=== PATIENT | female | born 1990 | race Caucasian/White ===

== ENCOUNTER 2022-09-08 13:51 | Emergency (ER) | payer OTHER, SELFPAY ==
[2022-09-08 14:12] VITALS: BP 153/102; PULSE 100; RESP 18; TEMP 36.7; O2SAT 100
--- NOTE | 2022-09-08 14:17 | ED.URI ---
HPI - URI/Sore Throat General Chief Complaint: Upper Respiratory Infection Stated Complaint: congestion Time Seen by Provider: 09/08/22 14:18 Source: patient Mode of arrival: ambulatory Limitations: no limitations History of Present Illness HPI Narrative: 32-year-old female presents with complaint of of sore throat, body aches, fatigue, headache for 4 days. Patient states she missed 2 days of work. Needs a work note. States that her work wants her tested for COVID. Denies cough, chest pain, shortness of breath, nasal congestion. Afebrile. All systems reviewed and negative except as noted above. Related Data Home Medications Medication Instructions Recorded Confirmed loratadine 10 mg tablet (Claritin) 10 mg PO DAILY 09/08/22 09/08/22 Allergies Allergy/AdvReac Type Severity Reaction Status Date / Time No Known Allergies Allergy Unknown Verified 09/08/22 14:08 Review of Systems Review of Systems: CONSTITUTIONAL: Denies fever, chills, or sweats. EYES: Denies visual changes, redness, or discharge. ENT: Denies rhinorrhea, congestion . Reports sore throat. Denies otalgia. CARDIOVASCULAR: Denies chest pain, palpitations, or edema. RESPIRATORY: Denies cough or dyspnea. GASTROINTESTINAL: Denies abdominal pain, nausea, vomiting, or diarrhea. GENITOURINARY: Denies dysuria or hematuria. SKIN: Denies rash or itching. MUSCULOSKELETAL: Denies back pain, joint pain, or myalgia. NEUROLOGIC: Denies headache, numbness, or weakness. PSYCHIATRIC: Denies anxiety or depression. All other systems reviewed are negative, except as documented in HPI. PMFSH Comments At time of signature, agree with nursing past medical, surgical, social and family history. There is no relevant family history pertinent to the presenting complaint. Exam Narrative: GENERAL: This is a well-nourished, well-developed patient, in no apparent distress. HEAD: normocephalic, atraumatic. EYES: PERRL. Sclera clear/white. Vision is grossly intact. EARS: External ears normal, auditory canals clear and without drainage, TMs normal without perforation. Hearing grossly intact. NOSE: External nose normal with no obvious nasal discharge, nares without redness, no rhinorrhea. THROAT: Mucous membranes moist, erythematous with mild swelling. No exudates. NECK: Neck supple, non-tender without lymphadenopathy, masses or thyromegaly. CARDIOVASCULAR: Regular rate and rhythm without murmurs, gallops, or rubs. RESPIRATORY: Clear to auscultation. Breath sounds equal bilaterally. No wheezes, rales, or rhonchi. SKIN: warm, Dry, intact with no suspicious lesions or rash, good texture and turgor. NEURO: awake, alert, and oriented to person, place and time. There were no obvious focal neurologic abnormalities. EXTREMITIES: No joint tenderness, effusion, or edema noted. Course Course Level of Care: Express Care Visit Vital Signs Vital signs: Vital Signs Temperature 36.7 C 09/08/22 14:12 Pulse Rate 100 09/08/22 14:12 Respiratory Rate 18 09/08/22 14:12 Blood Pressure 153/102 H 09/08/22 14:12 Pulse Oximetry 100 09/08/22 14:12 Oxygen Delivery Room Air 09/08/22 14:12 Temperature 36.7 C 09/08/22 14:12 Pulse Rate 100 09/08/22 14:12 Respiratory Rate 18 09/08/22 14:12 Blood Pressure 153/102 H 09/08/22 14:12 Pulse Oximetry 100 09/08/22 14:12 Oxygen Delivery Room Air 09/08/22 14:12 Reviewed MDM - URI/Sore Throat MDM Narrative Medical decision making narrative: Patient is aware of diagnosis, understands and agrees to treatment plan. Anticipatory guidance given. Patient agrees to follow-up as directed and is aware of reasons to seek care at the emergency department. Portions of this record may have been created with voice recognition software Differential Diagnosis Differential diagnosis: Likely upper respiratory infection and viral infection Lab Data Labs: Lab Results 09/08/22 Range/Units 14:20 POC LIVAN
== END 2022-09-08 14:45 | disposition home or self-care (01) ==
PROVIDERS: Emergency Provider Nurse Practitioner Family; PCP Obstetrics & Gynecology
DX: U07.1 COVID-19 (principal)
CPT/HCPCS: 87081; 87426; 87880; 99213; C9803; G0463

== ENCOUNTER 2022-10-04 01:21 | Emergency (ER) | payer OTHER, SELFPAY ==
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
[2022-10-04 01:23] VITALS: BP 182/118; PULSE 101; RESP 15; TEMP 36.3; O2SAT 100
[2022-10-04] MEDS: ceFAZolin SODIUM 1 GM VIAL 2 GM IV PUSH (02:28)
[2022-10-04] MEDS: TETANUS,DIPHTHERIA,AC PERTUSSIS ADULT (0.5 ML) BOOSTRIX IM (02:28)
[2022-10-04] MEDS: KETOROLAC 30 MG/ML VIAL (*BKC) 15 MG IV PUSH (02:29)
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
[2022-10-04 04:41] VITALS: BP 161/90; PULSE 97; RESP 15; O2SAT 99
== END 2022-10-04 04:43 | disposition home or self-care (01) ==
PROVIDERS: Emergency Provider Emergency Medicine; PCP Obstetrics & Gynecology
DX: S60.511A Abrasion of right hand, initial encounter (principal); S80.211A Abrasion, right knee, initial encounter; V20.59XA Other motorcycle passenger injured in collision with pedestrian or animal in traffic accident, initial encounter; Z23 Encounter for immunization
CPT/HCPCS: 73130; 90471; 90715; 96374; 96375; 99284; J0690; J1885

== ENCOUNTER 2024-02-02 11:48 | Emergency (ER) | payer BC, SELFPAY ==
--- NOTE | 2024-02-02 11:56 | ED.URI ---
HPI - URI/Sore Throat General Chief Complaint: Upper Respiratory Infection Stated Complaint: body ache / nausea Time Seen by Provider: 02/02/24 12:05 Source: patient Mode of arrival: ambulatory Limitations: no limitations History of Present Illness HPI Narrative: Gauri is a 33-year-old female patient presenting to the clinic today with complaints body aches, nausea, and vomiting for the past 3 days. She denies any known fever, chills, URI symptoms, urinary symptoms, diarrhea, or abdominal pain. States she is not able to keep anything down for the past 3 days. Last menstrual period was last month. Patient is sexually active. Related Data Allergies Allergy/AdvReac Type Severity Reaction Status Date / Time No Known Allergies Allergy Unknown Verified 02/02/24 12:20 Review of Systems Review of Systems: Pertinent positives per HPI. Patient denies any fever, chills, rash, headache, visual changes, dizziness, cough, shortness of breath, chest pain, palpitations, diarrhea, constipation, abdominal pain, or any urinary issues. PMFSH Comments At the time of my signature, I reviewed and agree with the nursing past medical, surgical, social, and family history. There is no relevant family history pertinent to the patient complaint. Exam Narrative: General: Well-developed, well nourished, in no apparent distress Head: Normocephalic, atraumatic Eyes: Pupils equally round and reactive to light bilaterally, EOM intact, sclera and conjunctive clear, no discharge, lids normal Ears: TMs intact and clear, ear canals clear, no drainage, grossly hearing normal. Nose: Nares patent, no discharge, no inflammation, no sinus tenderness. Mouth: Oropharynx without lesions or masses, good dentition, MM dry. Neck: Supple, trachea midline, no enlargement of anterior or posterior cervical nodes, no thyroid masses or goiter palpable. Cardio: Regular rate and rhythm, s1 and s2 normal, no murmur appreciated. Resp: Clear to auscultation bilaterally anteriorly and posteriorly, no rhonchi, rales, wheezing or rubs Abdomen: Soft, pliable, bowel sounds present in all quadrants, non-tender to palpation, no organomegly, no CVAT tenderness. Course Course Emergency Course: Portions of this record may have been created with voice recognition software. Level of Care: Express Care Visit Vital Signs Vital signs: Vital Signs Temperature 36.7 C 02/02/24 12:02 Pulse Rate 90 02/02/24 12:02 Respiratory Rate 16 02/02/24 12:02 Blood Pressure 169/103 H 02/02/24 12:02 Pulse Oximetry 100 02/02/24 12:02 Oxygen Delivery Room Air 02/02/24 12:02 Temperature 36.7 C 02/02/24 12:02 Pulse Rate 90 02/02/24 12:02 Respiratory Rate 16 02/02/24 12:02 Blood Pressure 169/103 H 02/02/24 12:02 Pulse Oximetry 100 02/02/24 12:02 Oxygen Delivery Room Air 02/02/24 12:02 Vital signs reviewed MDM - URI/Sore Throat MDM Narrative Medical decision making narrative: At the time of visit patient is resting comfortably on the exam table. Patient appears to be nontoxic. Labs: COVID, influenza, urinalysis, and bedside urine test was performed. Bedside urine to test is positive and urinalysis is positive for leukocytes, trace of ketone, and nitrates. COVID and influenza testing was negative. We will send urine for culture. Medications: Zofran 4 mg ODT given in the clinic today. P.o. challenge was performed patient was able to keep down ice chips. Plan: I suspect patient has acute dehydration, , and urinary tract infection. Prescription for Keflex and promethazine was sent to the pharmacy. Supportive measures were discussed with the patient and they voiced understanding discharge instructions and agrees to treatment plan. Return precautions reviewed Differential Diagnosis Differential diagnosis: Likely viral infection, influenza and other (COVID, , dehydration, UTI) Lab Data Labs: Lab R
[2024-02-02 12:02] VITALS: BP 169/103; PULSE 90; RESP 16; TEMP 36.7; O2SAT 100
[2024-02-02] MEDS: ONDANSETRON HCL ODT 4 MG TABLET SUBLINGUAL (12:22)
[2024-02-02 12:25] LABS: EDUAAPPEAR Clear; EDUABILI Negative (Negative); EDUABLOOD Negative (Negative); EDUACOLOR1 Dark; EDUAGLUCOSE Negative (Negative); EDUAKETONE Trace (Negative); EDUALEUKO Trace (Negative); EDUANITRATE Positive (Negative); EDUAPH 6.5; EDUAPROTEIN Negative (Negative); EDUASPGRAVITY 1.025
[2024-02-02 12:25] LABS: BEDSIDEPREGUCG Positive (Negative)
[2024-02-02 12:30] VITALS: BP 148/94
== END 2024-02-02 12:32 | disposition home or self-care (01) ==
PROVIDERS: Emergency Provider Nurse Practitioner Family
DX: O23.40 Unspecified infection of urinary tract in pregnancy, unspecified trimester (principal); B96.20 Unspecified Escherichia coli [E. coli] as the cause of diseases classified elsewhere; N39.0 Urinary tract infection, site not specified; O99.280 Endocrine, nutritional and metabolic diseases complicating pregnancy, unspecified trimester; E86.0 Dehydration; Z3A.00 Weeks of gestation of pregnancy not specified
CPT/HCPCS: 81003; 81025; 87077; 87086; 87186; 99213; A9270; G0463

== ENCOUNTER 2024-07-11 21:29 | Emergency (ER) | payer MEDICAID, SELFPAY ==
[2024-07-11 21:47] VITALS: BP 186/134; PULSE 116; RESP 18; TEMP 36.6; O2SAT 99
--- NOTE | 2024-07-11 21:54 | ECG_ITS ---
Test Date: 2024-07-11 21:58:10 Measurements Intervals [place] Rate: 118 P: 57 [place]: 141 QRS: 26 QRSD: 85 T: 196 QT: 340 QTc: 477 Interpretive Statements SINUS TACHYCARDIA LEFT ATRIAL ENLARGEMENT [-0.15mV P WAVE IN V1/V2] ST DEVIATION AND MODERATE T-WAVE ABNORMALITY, CONSIDER LATERAL ISCHEMIA [-0.1+ mV T WAVE IN I/aVL/V5/V6] ST DEVIATION AND MODERATE T-WAVE ABNORMALITY, CONSIDER INFERIOR ISCHEMIA [-0.1+ mV T WAVE IN II/aVF] No previous ECG available for comparison Electronically Signed On 07-12-2024 16:46:24 CDT by Gold Potts M.D.
--- NOTE | 2024-07-12 01:31 | PC.NURSE ---
No answer when called to be taken back to main ED room.
== END 2024-07-12 01:31 | disposition left against medical advice (07) ==
LOC: ANHED 07-12 01:40
PROVIDERS: Emergency Provider Emergency Medicine
DX: R06.02 Shortness of breath (principal)
CPT/HCPCS: 93005; 99199

== ENCOUNTER 2024-07-12 07:09 | Observation (INO) | payer MEDICAID, SELFPAY ==
[2024-07-12] VITALS (11 sets, daily range): BP systolic 140–190; BP diastolic 74–142; PULSE 97–121; RESP 16–25; TEMP 36.5–37.2; O2SAT 96–100; BMI 26.2
--- NOTE | ~2024-07-12 | XR_ITS ---
CHEST RADIOGRAPH CLINICAL HISTORY: Post thoracentesis . COMPARISON: CTA of the chest performed 6 hours earlier TECHNIQUE: Single portable view of the chest. FINDINGS The cardiomediastinal silhouette is unremarkable. Interval resolution of the right-sided pleural effusion, seen on CT examination performed 6 hours ear lier. Small left-sided pleural effusion persists. The right lung is inflated. IMPRESSION: No pneumothorax following right-sided thoracentesis with resolution of the right-sided pleural effusi on, as detailed above. Reviewed, dictated and finalized at location A. IMPRESSION: No pneumothorax following right-sided thoracentesis with resolution of the righ t-sided pleural effusion, as detailed above.
--- NOTE | ~2024-07-12 | XR_ITS ---
XR chest 2V Ordering provider: Veronica Stephens MD History: 33 years Female with . SOB 4days, difficult. breathing with activity, hx of high BP . Comparison: None. FINDINGS: MEDIASTINUM: The cardiac silhouette is slightly enlarged. Congestive pedro. LUNGS: No effusions or pneumothorax. Opacification the lung bases is seen suggestive of atelectasis versus pneumonia. OTHER: No free air under the diaphragm. IMPRESSION: Bibasilar atelectasis versus pneumonia. Reviewed, dictated and finalized at location A.
--- NOTE | ~2024-07-12 | US_ITS ---
EXAMINATION: US abdomen limited DATE: 07/12/2024 12:30 INDICATION: Fluid overload the gallbladder wall thickening on CT. TECHNIQUE: Multiple grayscale and Doppler ultrasound images of the abdomen were obtained. COMPARISON: CT dated 07/12/2024 FINDINGS: The pancreatic head and body are normal in appearance. The pancreatic tail is not visualized. The vi sualized proximal to mid inferior vena cava and aorta are normal. Liver has normal echogenicity and c ontour, with a smooth surface. No liver lesion identified. No intrahepatic biliary duct dilation susp ected. Portal venous flow was seen in the hepatopetal, normal direction and has normal Doppler wavefo rm. Borderline gallbladder wall thickening measuring up to 3-4 mm which may be due to partially decom pressed state.. No evident gallbladder sludge or cholelithiasis. The common bile duct measures 4 mm, which is normal. Sonographic Elise sign was reported as negative by the cvor nurse.Visualized porti on of the right kidney demonstrates normal contour and axis tube with no hydronephrosis. There is a r ight pleural effusion. IMPRESSION: 1. Nonspecific borderline gallbladder wall thickening but with negative sonographic Elise's on and w ithout gallbladder dilation or cholelithiasis to suggest acute cholecystitis. Given the persistent ri ght pleural effusion as well as the Cardia megaly with pulmonary edema seen on prior CT the prior mor e prominent wall thickening is likely related to congestive heart failure. If there is continued high clinical concern for acute cholecystitis could consider HIDA scan for further evaluation. Reviewed, dictated and finalized at location A. IMPRESSION: 1. Nonspecific borderline gallbladder wall thickening but with negative sonogra phic Elise's on and without gallbladder dilation or cholelithiasis to suggest acute cholecystitis. Given the persistent right pleural effusion as well as the Cardia megaly with pulmonary edema seen on prior CT the prior more prominent w all thickening is likely related to congestive heart failure. If there is slick nued high clinical concern for acute cholecystitis could consider HIDA scan for further evaluation.
--- NOTE | ~2024-07-12 | CT_ITS ---
Clinical Indication: Tachycardia, chest pain, transaminitis CT Scan of the Chest, Abdomen, and Pelvis with Contrast: Technique: Contiguous sections were acquired throughout the chest, abdomen, and pelvis after intraven ous administration of 100 cc of Omnipaque 350. Dose reduction technique was used on this scan by uti lizing automated exposure control and iterative reconstruction technique. The dose-length product (DL P) was 396.63 mGy-cm. Findings: There is no evidence of any significant mediastinal, hilar or axillary lymphadenopathy. The mediastin al soft tissues appear normal. No pulmonary embolus. No aortic aneurysm. No pericardial effusion. Moderate right pleural effusion and [id number] left pleural effusion are present. There is int erstitial pulmonary edema. There is mild bibasilar atelectatic change.. There is minimal heterogeneity of the liver. The spleen, pancreas, adrenals and kidneys are within no rmal limits. Diffuse gallbladder wall thickening present. No evidence of aortic aneurysm. No lymphad enopathy. No bowel obstruction or bowel wall thickening. There is no evidence to suggest acute appendicitis. Urinary bladder is unremarkable. No pelvic mass seen aside from small right ovarian cyst. No ascites. Impression: Moderate right pleural effusion and small to moderate left pleural effusion. Mild pulmonary edema, predominantly interstitial edema. Minimal heterogeneity of liver. Correlate for congestive hepatopathy. Gallbladder wall thickening likely related to fluid overload state. Reviewed, dictated and finalized at [facility]. Impression: Moderate right pleural effusion and small to moderate left pleural effusion. Mild pulmonary edema, predominantly interstitial edema. Minimal heterogeneity of liver. Correlate for congestive hepatopathy. Gallbladder wall thickening likely related to fluid overload state.
--- NOTE | ~2024-07-12 | US_ITS ---
EXAMINATION: US thoracentesis DATE: 07/12/2024 15:53 INDICATION: New onset heart failure with bilateral pleural effusions, right greater than left TECHNIQUE: The procedure and its risks and benefits were discussed with the patient. Potential risks discussed included bleeding, infection, and pneumothorax. The patient understood the risks and agreed to proceed. The skin was prepped and draped in sterile fashion. 1% lidocaine was used for local anes thesia. Under ultrasound guidance, a 5 Fr catheter with trochar was advanced into the right pleural e ffusion. Fluid was aspirated. The catheter was removed, and a dressing was applied. There were no imm ediate complications. FINDINGS: Ultrasound images demonstrate a small right pleural effusion and the catheter within the fluid. IMPRESSION: 1. Successful ultrasound-guided thoracentesis yielding 700 mL of clear yellow fluid. Reviewed, dictated and finalized at location A.
--- NOTE | ~2024-07-12 | XR_ITS ---
XR ankle RT 2V 07/12/2024 08:38 Indication: Right ankle pain. Trauma. Procedure: 2 views right ankle Comparison: No prior studies for comparison. Findings: Ankle mortise intact. No fracture, subluxation or dislocation. Talar dome is normal. No sof t tissue abnormality. No foreign bodies. Impression: 1: No acute bone or joint abnormality. Reviewed, dictated and finalized at location B. Impression: 1: No acute bone or joint abnormality.
--- NOTE | 2024-07-12 07:14 | ECG_ITS ---
Test Date: 2024-07-12 07:28:02 Measurements Intervals [place] Rate: 113 P: 62 [place]: 112 QRS: 17 QRSD: 84 T: 188 QT: 326 QTc: 448 Interpretive Statements SINUS TACHYCARDIA WITH SHORT [place] INTERVAL LEFT ATRIAL ENLARGEMENT [-0.15mV P-WAVE IN V1/V2] ST DEVIATION AND MODERATE T-WAVE ABNORMALITY, CONSIDER LATERAL ISCHEMIA [-0.1+ mV T-WAVE IN I/aVL/V5/V6] ST DEVIATION AND T-WAVE ABNORMALITY, CONSIDER INFERIOR ISCHEMIA Compared to ECG 07/11/2024 21:58:10 NO SIGNIFICANT CHANGES Electronically Signed On 07-12-2024 16:54:41 CDT by Gold Potts M.D.
[2024-07-12 07:42] LABS: Basophils Absolute Auto 0.1 K/mm3 (0.0-0.1); Basophils Percent Auto 0.7 % (0.2-1.2); Eosinophils Absolute Auto 0.1 K/mm3 (0-0.3); Eosinophils Percent Auto 1.2 % (0-4.4); Hematocrit 48.4 % (37.0-47.0); Hemoglobin 15.3 g/dL (12.0-15.0); Immature Granulocyte Absolute 0.02 K/mm3 (0.00-0.031); Immature Granulocyte Percent A 0.2 % (0-0.5); Lymphocytes Absolute Auto 2.72 K/mm3 (0.9-3.2); Lymphocytes Percent Auto 26.7 % (18.3-44.2); Mean Corpuscular HGB Conc 31.6 g/dl (32-36); Mean Corpuscular Hemoglobin 27.8 pg (26-34); Mean Corpuscular Volume 87.8 fl (80-100); Mean Platelet Volume 10.7 fl (7.4-10.4); Monocytes Absolute Auto 0.6 K/mm3 (0.1-0.6); Monocytes Percent Auto 5.6 % (2.6-8.5); Neutrophils Absolute Auto 6.7 K/mm3 (1.3-6.7); Neutrophils Percent Auto 65.6 % (45.5-73.1); Platelet Count Result 260 k/mm3 (150-375); Red Blood Count 5.51 M/mm3 (4.2-5.4); White Blood Count 10.2 K/mm3 (4.5-10.0)
[2024-07-12 08:04] LABS: Alanine Aminotransferase 95 U/L (6-35); Albumin Level 3.5 g/dL (3.5-5.1); Alkaline Phosphatase 65 U/L (38-126); Anion Gap 8 mmol/L (4-12); Aspartate Amino Transferase 61 U/L (14-36); Bilirubin,Total 0.8 mg/dL (0.2-1.3); Blood Urea Nitrogen 13 mg/dL (7-17); Calcium 8.2 mg/dL (8.4-10.2); Carbon Dioxide 22 mmol/L (22-30); Chloride 106 mmol/L (98-107); Estimated CRCL calculation 77 ml/min; Estimated Glomerular Filt Rate > 60; Glucose 104 mg/dL (65-110); Potassium 4.3 mmol/L (3.4-5.0); Sodium 136 mmol/L (137-145)
--- NOTE | 2024-07-12 08:04 | ED_ITS ---
HPI - SOB/Dyspnea General Chief Complaint: Shortness of Breath/Dyspnea Stated Complaint: shortness of breath, swelling to R ankle/abd Time Seen by Provider: 07/12/24 07:24 Source: patient and family (mother) Mode of arrival: ambulatory Limitations: no limitations History of Present Illness HPI Narrative: Patient presents with report of shortness of breath. She feels like she has gained water weight. Particularly in her right leg/ankle. No chest pain. She has become dyspneic on exertion and sometimes at rest, making it difficult to sleep. Symptoms started 4 days ago but at baseline she is very active so this is unusual. She starts coughing when lying flat. No fevers or chills. Had been told previously that she had hypertension but not on meds. Symptoms worse when walking. Ankle has been swollen but without pain. She feels fatigued. LMP 9 days ago. Cardiac issues on father's side of family. No trauma/injury to ankle. Not on anticoagulation. No recent travel. No history DVT/PE. Not on anticoagulation. Related Data Allergies Allergy/AdvReac Type Severity Reaction Status Date / Time No Known Allergies Allergy Unknown Verified 07/12/24 07:26 [facility] Past Medical History Medical History HTN (hypertension) Surgical History Surgical History (Updated 07/12/24 @ 18:01 by Yanet Shaffer APRN) H/O elbow surgery Family History Family History Father Acute myocardial infarction, Onset Age: 65 Other Acute myocardial infarction 60s Social History Social History Smoking status: Never smoker Alcohol intake: former Substance use: never Last use: 2020 Do You Feel Safe in your Home?: Yes Lack of Transportation: No Lack of Food: Never True Current Housing: I Have Housing Concerned About Future Housing: No Difficulty Paying Gas/Electric Bills: No Difficulty Paying for Meds: No Currently Unemployed: No Education: Associate Degree Difficulty w/ Childcare or Family Care: No Spiritual care concerns: No Exam 2 Narrative: GENERAL: Well-appearing, well-nourished, and in no acute distress. HEAD: Normocephalic, atraumatic. EYES: Non injected, non icteric ENT: Nares clear, no rhinorrhea or epistaxis. NECK: Supple. CHEST: Speaking in full sentences. No respiratory distress. Non labored. Not hypoxic. HEART: Regular rate and rhythm. . ABDOMEN: Soft, nondistended. EXTREMITIES: Normal range of motion. 1+ L lower extremity edema and 3+ R LE edema. SKIN: Warm, dry, no rash. NEURO: No focal deficits. Alert and oriented x3. PSYCH: Normal mood and affect. Course Vital Signs Vital signs: Vital Signs Temperature 98.1 F 07/12/24 07:19 Pulse Rate 121 H 07/12/24 07:19 Respiratory Rate 16 07/12/24 07:19 Blood Pressure 190/142 H 07/12/24 07:19 Pulse Oximetry 100 07/12/24 07:19 Oxygen Delivery Room Air 07/12/24 07:19 Temperature 98.6 F 07/14/24 04:33 Pulse Rate 80 07/14/24 09:29 Respiratory Rate 16 07/14/24 04:33 Blood Pressure 142/89 H 07/14/24 04:33 Pulse Oximetry 97 07/14/24 04:33 Oxygen Delivery Room Air 07/13/24 20:14 Fraction of Inspired Oxygen 21 07/13/24 20:14 MDM - SOB/Dyspnea MDM Narrative Medical decision making narrative: Patient presents with shortness of breath starting 4 days ago. Also has been feeling fatigued and gaining water weight particularly appreciated in R lower extremity. Previously told she had hypertension but not on meds. In the emergency department she is afebrile with vital signs notable for tachycardia and hypertension. Mild leukocytosis. Hemoglobin slightly elevated with no prior for comparison, possible degree of hemoconcentration. Pseudo hypocalcemia as it corrects to normal in setting of her albumin level. Mild transaminitis. Viral swab negative. D-dimer greater than 1 so will proceed with CTA imaging assessing for pulmonary embolism. Given the transaminitis will also include abdomen and pelvis. test negative. BNP greater than 9000 concerning for acute heart failure. Amphetamine positive on urine drug screen. Given degree of pleural effusion and acuity of heart failure in patient of her age, recommend admission for further work up and management to assess for reversible/manageable conditions. She verifies understanding, amenable. Empirically ordered pleural fluid labs for analysis (including using Light's Criteria though presume transudative given suspicion of heart failure, possibly secondary to unmanaged HTN but other etiologies considered) as well as ordered radiological diagnostic and therapeutic thoracentesis. Disussed with certified health education specialist hospitalist SACHI Holt. Differential Diagnosis Differential diagnosis: Likely congestive heart failure (including considered flash pulmonary edema/SCAPE), community acquired pneumonia, pulmonary embolism and other (Cardiomyopathy; symptomatic anemia, electrolyte abnormalities, renal dysfunction; acute viral syndrome) Lab Data Attestation: I reviewed the patient's lab results. 07/14/24 04:40 07/14/24 04:40 Labs: Lab Results 07/12/24 07/12/24 07/12/24 Range/Units 07:35 08:56 09:10 WBC 10.2 H (4.5-10.0) K/mm3 RBC 5.51 H (4.2-5.4) M/mm3 Hgb 15.3 H (12.0-15.0) g/dL Hct 48.4 H (37.0-47.0) % MCV 87.8 (80-100) fl MCH 27.8 (26-34) pg MCHC 31.6 L (32-36) g/dl RDW 15.0 H (11.5-14.5) % Plt Count 260 (150-375) k/mm3 MPV 10.7 H (7.4-10.4) fl Immature Gran % (Auto) 0.2 (0-0.5) % Neut % (Auto) 65.6 (45.5-73.1) % Lymph % (Auto) 26.7 (18.3-44.2) % [place] % (Auto) 5.6 (2.6-8.5) % Eos % (Auto) 1.2 (0-4.4) % Baso % (Auto) 0.7 (0.2-1.2) % Lymph # (Auto) 2.72 (0.9-3.2) K/mm3 [place] # (Auto) 0.6 (0.1-0.6) K/mm3 Eos # (Auto) 0.1 (0-0.3) K/mm3 Baso # (Auto) 0.1 (0.0-0.1) K/mm3 Abs Immat Gran (auto) 0.02 (0.00-0.031) K/mm3 Absolute Neuts (auto) 6.7 (1.3-6.7) K/mm3 Absolute Nucleated RBC 0.000 (0.0-0.012) K/mm3 Nucleated RBC % 0.0 (0.0-0.2) % D-Dimer 4.78 H (<0.48) ug/mL Sodium 136 L (137-145) mmol/L Potassium 4.3 (3.4-5.0) mmol/L Chloride 106 (98-107) mmol/L Carbon Dioxide 22 (22-30) mmol/L Anion Gap 8 (4-12) mmol/L BUN 13 (7-17) mg/dL Creatinine 0.77 (0.7-1.0) mg/dL Estim Creat Clear Calc 77 ml/min Estimated GFR > 60 (59 - ) Glucose 104 (65-110) mg/dL Calcium 8.2 L (8.4-10.2) mg/dL Magnesium 1.8 (1.6-2.3) mg/dL Total Bilirubin 0.8 (0.2-1.3) mg/dL AST 61 H (14-36) U/L ALT 95 H (6-35) U/L Alkaline Phosphatase 65 (38-126) U/L Total Creatine Kinase 135 (30-135) U/L Troponin I 0.018 (0.000-0.034) ng/mL NT-Pro-B Natriuret Pep 9890 H (19.9-100) pg/mL Total Protein 6.0 L (6.3-8.2) g/dL Albumin 3.5 (3.5-5.1) g/dL Urine Color Yellow (Yellow) Urine Appearance Cloudy H (Clear) Urine pH 6.0 (5.0-9.0) Ur Specific [place] 1.022 (1.001-1.035) Urine Protein 1+ H (Negative) mg/dL Urine Glucose (UA) Negative (Negative) mg/dL Urine Ketones Negative (Negative) mg/dL Ur Blood (Man) Negative (Negative) Urine Nitrate Positive H (Negative) Urine Bilirubin Negative (Negative) Urine Urobilinogen 1.0 (<2.0) mg/dL Leukocyte Esterase Rfl Negative (Negative) JAVIER/UL Urine RBC 3-5 H (0-2) /hpf Urine WBC 0-5 (0-3) /hpf Ur Squamous Epith Cells Many H (Few) /hpf Calcium Oxalate Crystal Present (None) /hpf Urine Bacteria 4+ H /hpf Urine Casts 0-2 POC Urine HCG, Qual Negative (Negative) Urine Opiates Screen Negative (Negative) Urine Methadone Screen Negative (Negative) Ur Barbiturates Screen Negative (Negative) Ur Phencyclidine Scrn Negative (Negative) Ur Amphetamine Screen Positive A (Negative) U Benzodiazepines Scrn Negative (Negative) Urine Cocaine Screen Negative (Negative) U Cannabinoids Screen Negative (Negative) Influenza A (RT-PCR) Negative (Negative) Influenza B (RT-PCR) Negative (Negative) RSV (RT-PCR) Negative (Negative) SARS-CoV-2 RNA (RT-PCR) Negative (Negative) Imaging Data Attestation: I personally reviewed and interpreted this imaging study as follows: My impression: Chest x-ray with basilar haziness on the left without complete opacification and loss of the left costophrenic angle Prominent right pleural effusion appreciated on my independent interpretation of CTA chest, does not appear to be loculated Radiologist's impression: IMPRESSION: Bibasilar atelectasis versus pneumonia. Impression: 1: No acute bone or joint abnormality. Impression: Moderate right pleural effusion and small to moderate left pleural effusion. Mild pulmonary edema, predominantly interstitial edema. Minimal heterogeneity of liver. Correlate for congestive hepatopathy. Gallbladder wall thickening likely related to fluid overload state. IMPRESSION: 1. Nonspecific borderline gallbladder wall thickening but with negative sonographic Elise's on and without gallbladder dilation or cholelithiasis to suggest acute cholecystitis. Given the persistent right pleural effusion as well as the Cardia megaly with pulmonary edema seen on prior CT the prior more prominent wall thickening is likely related to congestive heart failure. If there is continued high clinical concern for acute cholecystitis could consider HIDA scan for further evaluation. ECG Data EKG #1: Attestation: I personally reviewed and interpreted this ECG as follows: ECG completion date: 07/12/24 ECG completion time: 07:28 Prior ECG tracings: available for review (Patient had an EKG obtained last night/yesterday (?) 07/11/24 21:58 that also showed sinus tachycardia) Interpretation: Sinus tachycardia at a rate of 113 beats per minute. NE interval 112. QRS 84. QT/QTC 328/393. Good R-wave progression across the precordial leads. Possible T-wave inversion lead 2. Flat in lead 3. T-wave inversions in lateral precordial leads V5 and V6. Discharge Plan Discharge Clinical Impression: HTN (hypertension), Elevated hemoglobin, Abnormal transaminases, Acute heart failure, Bilateral pleural effusion, Interstitial edema, Abnormal drug screen Patient Disposition: Still a Patient Condition: Stable
[2024-07-12 08:20] LABS: Influenza A QL RT-PCR Negative (Negative); Influenza B QL RT-PCR Negative (Negative); RSV RNA, RT-PCR Negative (Negative); SARS-CoV-2 RNA PCR Negative (Negative)
[2024-07-12 09:12] LABS: Add Urine Microscopic? YES; Appearance Urine Cloudy (Clear); Bacteria Urine 4+ /hpf; Bilirubin Urine Negative (Negative); Blood Urine Negative (Negative); Calcium Oxalate Crystals Urine Present /hpf; Color Urine Yellow (Yellow); Glucose Urine UA Negative (Negative); Ketones Urine Negative (Negative); Leukocyte Esterase Ur Negative LEU/UL (Negative); Nitrate Urine Positive (Negative); Non Pathogenic Casts 0-2; Protein Urine 1+ mg/dL (Negative); Specific Grav Ur 1.022 (1.001-1.035); Squamous Epithelial Cell Urine Many /hpf (Few); WBC Urine 0-5 /hpf (0-3)
[2024-07-12 09:12] LABS: BEDSIDEPREGUCG Negative (Negative)
[2024-07-12 09:17] LABS: D Dimer 4.78 ug/mL (<0.48)
[2024-07-12 09:39] LABS: Creatine Kinase 135 U/L (30-135); Magnesium 1.8 mg/dL (1.6-2.3)
[2024-07-12 09:51] LABS: NT Pro B Type Natriuretic Pept 9890 pg/mL (19.9-100); Troponin I 0.018 ng/mL (0.000-0.034)
[2024-07-12 11:27] LABS: Barbiturate Screen Urine Negative (Negative); Benzodiazepines Screen Urine Negative (Negative)
[2024-07-12 11:29] LABS: Cannabinoid Screen Urine Negative (Negative); Cocaine Screen Urine Negative (Negative); Methadone Screen Urine Negative (Negative); Opiate Screen Urine Negative (Negative); Phencyclidine Screen Urine Negative (Negative)
[2024-07-12 12:04] LABS: Amphetamine Screen Urine Positive (Negative)
[2024-07-12] MEDS: FUROSEMIDE 40 MG TABLET PO (12:12)
--- NOTE | 2024-07-12 12:59 | P.HP_ITS ---
H&P: HPI History of Present Illness Date/Time: 07/12/24 12:59 Chief Complaint: SOB/dyspnea Narrative: This is a 33-year-old female with no significant past medical history who presented to the hospital with complaints of shortness of breath / dyspnea. patient states that she noticed swelling in her right lower extremity about 9 days ago and then started having shortness of breath about 4 days ago that progressively worsened. She denies any recent sick contacts. She denies any fever, chills, nausea, vomiting, diarrhea, abdominal pain, chest pain. Workup in the hospital included a chest x-ray which showed bibasilar atelectasis versus pneumonia. Right ankle x-ray which was negative for any acute abnormality. Chest/abdomen/ pelvis CTA showed moderate right pleural effusion is small to moderate left pleural effusion, mild pulmonary edema, gallbladder wall thickening likely related to fluid overload state. Abdomen ultrasound showed a nonspecific borderline gallbladder wall thickening but with negative Elise sign and without gallbladder dilation or cholelithiasis to suggest acute cholecystitis. Given the persistent right pleural effusion with pulmonary edema on CT is likely related to congestive heart failure. Initial labs showed a white blood cell count of 10.2, D-dimer 4.78, sodium 136, AST 61, ALT 95, proBNP 9890, troponin 0.018. UA was obtained which showed cloudy urine appearance, 1+ urine protein, positive nitrate, 3-5 urine RBC, many urine squamous epithelial cells, 4+ urine bacteria. Urine test was negative. Urine drug test was positive for amphetamine. Respiratory panel was negative for influenza A and B, RSV, COVID. EKG showed sinus tach with a rate of 113, QTC 448. Patient was given 40 mg IV push Lasix while in the ED. Review of Systems Review of Systems: All systems reviewed & are unremarkable except as noted in HPI and below [facility] Surgical History Surgical History (Updated 07/12/24 @ 18:01 by Yanet Shaffer APRN) H/O elbow surgery Social History Social History Smoking status: Never smoker Alcohol intake: former Substance use: never Last use: 2020 Do You Feel Safe in your Home?: Yes Lack of Transportation: No Lack of Food: Never True Current Housing: I Have Housing Concerned About Future Housing: No Difficulty Paying Gas/Electric Bills: No Difficulty Paying for Meds: No Currently Unemployed: No Education: Associate Degree Difficulty w/ Childcare or Family Care: No Spiritual care concerns: No Meds Home Medications and Allergies Allergies Allergy/AdvReac Type Severity Reaction Status Date / Time No Known Allergies Allergy Unknown Verified 07/12/24 07:26 Vital Signs Vital Signs - 24 hr 07/12/24 07:19 07/12/24 07:26 07/12/24 10:06 Temperature 98.1 F Pulse Rate 121 H 114 H 109 H Respiratory Rate 16 17 Blood Pressure 190/142 H 182/127 H Pulse Oximetry 100 96 Oxygen Delivery Room Air 07/12/24 11:05 Temperature Pulse Rate 104 H Respiratory Rate 19 Blood Pressure 164/110 H Pulse Oximetry 97 Oxygen Delivery Exam Narrative: General: In no acute distress, well nourished Head: atraumatic, no encephalopathy Eyes: PERRLA, sclera clear ENT: moist mucous membranes, nasal passages clear Neck: supple, no JVD, no adenopathy, trachea midline Cardiac: Normal S1 and S2. RRR, No murmur, gallops or friction rubs, peripheral pulses intact. Respiratory: Lungs clear to auscultation, no adventitious lung sounds, currently on room air Gastrointestinal: soft, non-distended, non-tender, normoactive bowel sounds. : voiding without difficulty. Extremities: moves all extremities well, mild edema to RLE around ankle Skin: clean, dry, intact. No wounds or lesions. Neuro: Alert and oriented x4, cranial nerves intact, no neuro deficits. Psych: normal mood, normal affect, interactive H&P: Results Labs Labs: Short CBC 07/12/24 Range/Units 07:35 WBC 10.2 H (4.5-10.0) K/mm3 Hgb 15.3 H (12.0-15.0) g/dL Hct 48.4 H (37.0-47.0) % Plt Count 260 (150-375) k/mm3 BMP 07/12/24 07:35 Sodium 136 L Potassium 4.3 Chloride 106 Carbon Dioxide 22 BUN 13 Creatinine 0.77 Glucose 104 Calcium 8.2 L Cardiac Enzymes 07/12/24 Range/Units 07:35 Total Creatine Kinase 135 (30-135) U/L Troponin I 0.018 (0.000-0.034) ng/mL Liver Function 07/12/24 Range/Units 07:35 Total Bilirubin 0.8 (0.2-1.3) mg/dL AST 61 H (14-36) U/L ALT 95 H (6-35) U/L Alkaline Phosphatase 65 (38-126) U/L Albumin 3.5 (3.5-5.1) g/dL Urine 07/12/24 Range/Units 08:56 Urine Color Yellow (Yellow) Urine Appearance Cloudy H (Clear) Urine pH 6.0 (5.0-9.0) Ur Specific Wells 1.022 (1.001-1.035) Urine Protein 1+ H (Negative) mg/dL Urine Glucose (UA) Negative (Negative) mg/dL Imaging Chest x-ray: Radiologist's impression: XR chest 2V Ordering provider: Veronica Stephens MD History: 33 years Female with . SOB 4days, difficult. breathing with activity, hx of high BP . Comparison: None. FINDINGS: MEDIASTINUM: The cardiac silhouette is slightly enlarged. Congestive pedro. LUNGS: No effusions or pneumothorax. Opacification the lung bases is seen suggestive of atelectasis versus pneumonia. OTHER: No free air under the diaphragm. IMPRESSION: Bibasilar atelectasis versus pneumonia. Reviewed, dictated and finalized at location A. right ankle x-ray: Radiologist's impression: XR ankle RT 2V 07/12/2024 08:38 Indication: Right ankle pain. Trauma. Procedure: 2 views right ankle Comparison: No prior studies for comparison. Findings: Ankle mortise intact. No fracture, subluxation or dislocation. Talar dome is normal. No soft tissue abnormality. No foreign bodies. Impression: 1: No acute bone or joint abnormality. Reviewed, dictated and finalized at location B. chest/abdomen/pelvis CTA: Radiologist's impression: CT Scan of the Chest, Abdomen, and Pelvis with Contrast: Technique: Contiguous sections were acquired throughout the chest, abdomen, and pelvis after intravenous administration of 100 cc of Omnipaque 350. Dose reduction technique was used on this scan by utilizing automated exposure control and iterative reconstruction technique. The dose-length product (DLP) was 396.63 mGy-cm. Findings: There is no evidence of any significant mediastinal, hilar or axillary lymphadenopathy. The mediastinal soft tissues appear normal. No pulmonary embolus. No aortic aneurysm. No pericardial effusion. Moderate right pleural effusion and [id number] left pleural effusion are present. There is interstitial pulmonary edema. There is mild bibasilar atelectatic change.. There is minimal heterogeneity of the liver. The spleen, pancreas, adrenals and kidneys are within normal limits. Diffuse gallbladder wall thickening present. No evidence of aortic aneurysm. No lymphadenopathy. No bowel obstruction or bowel wall thickening. There is no evidence to suggest acute appendicitis. Urinary bladder is unremarkable. No pelvic mass seen aside from small right ovarian cyst. No ascites. Impression: Moderate right pleural effusion and small to moderate left pleural effusion. Mild pulmonary edema, predominantly interstitial edema. Minimal heterogeneity of liver. Correlate for congestive hepatopathy. Gallbladder wall thickening likely related to fluid overload state. Reviewed, dictated and finalized at location M. US - abdomen: Radiologist's impression: EXAMINATION: US abdomen limited DATE: 07/12/2024 12:30 INDICATION: Fluid overload the gallbladder wall thickening on CT. TECHNIQUE: Multiple grayscale and Doppler ultrasound images of the abdomen were obtained. COMPARISON: CT dated 07/12/2024 FINDINGS: The pancreatic head and body are normal in appearance. The pancreatic tail is not visualized. The visualized proximal to mid inferior vena cava and aorta are normal. Liver has normal echogenicity and contour, with a smooth surface. No liver lesion identified. No intrahepatic biliary duct dilation suspected. Portal venous flow was seen in the hepatopetal, normal direction and has normal Doppler waveform. Borderline gallbladder wall thickening measuring up to 3-4 mm which may be due to partially decompressed state.. No evident gallbladder sludge or cholelithiasis. The common bile duct measures 4 mm, which is normal. Sonographic Elise sign was reported as negative by the computer operations analyst.Visualized portion of the right kidney demonstrates normal contour and axis tube with no hydronephrosis. There is a right pleural effusion. IMPRESSION: 1. Nonspecific borderline gallbladder wall thickening but with negative sonographic Elise's on and without gallbladder dilation or cholelithiasis to suggest acute cholecystitis. Given the persistent right pleural effusion as well as the Cardia megaly with pulmonary edema seen on prior CT the prior more prominent wall thickening is likely related to congestive heart failure. If there is continued high clinical concern for acute cholecystitis could consider HIDA scan for further evaluation. Reviewed, dictated and finalized at location A. Assessment and Plan Assessment and plan (1) Acute heart failure: Code(s): I50.9 - Heart failure, unspecified Status: Acute Assessment and Plan: * chest x-ray showed bibasilar atelectasis versus pneumonia * chest/abdomen/ pelvis CTA showed moderate right pleural effusion and small to moderate left pleural effusion, mild pulmonary edema, gallbladder wall thickening likely related to fluid overload state * proBNP 9890, troponin 0.018 * respiratory panel negative for influenza A and B, RSV, COVID * patient was given 40 mg IV push Lasix while in the ED * will obtain echocardiogram (2) Bilateral pleural effusion: Code(s): J90 - Pleural effusion, not elsewhere classified Status: Acute Assessment and Plan: * chest/abdomen/ pelvis CTA showed moderate right pleural effusion and small to moderate left pleural effusion * diagnostic and therapeutic thoracentesis obtained today and yielded 700 ml pleural fluid. (3) Pneumonia: Code(s): J18.9 - Pneumonia, unspecified organism Status: Acute Assessment and Plan: * CXR shown pneumonia * Will start Rocephin and Azithromycin * Duonebs as needed (4) HTN (hypertension): Code(s): I10 - Essential (primary) hypertension Status: Acute Assessment and Plan: * blood pressure ranging 148/94 to 182/134 * will start lisinopril 5 mg daily * hydralazine p.r.n. for systolic greater than 180 (5) Abnormal transaminases: Code(s): R74.8 - Abnormal levels of other serum enzymes Status: Acute Assessment and Plan: * initial AST 61, ALT 95 * continue to trend (6) Abnormal drug screen: Code(s): R89.2 - Abnormal level of other drugs, medicaments and biological substances in specimens from other organs, systems and tissues Status: Acute Assessment and Plan: * urine drug screen positive for amphetamines * patient denies any recreational drug history (7) Abnormal finding on urinalysis: Code(s): R82.90 - Unspecified abnormal findings in urine Status: Acute Assessment and Plan: * UA showed cloudy appearance, 1+ urine protein, positive nitrate, 3-5 urine RBC, many urine squamous epithelial cells, 4+ bacteria * Urine culture pending Quality VTE Prophylaxis VTE prophylaxis: mechanical ordered Hospitalist MIPS Advance Care Plan I have confirmed that the patient's Advanced Care Plan is present, code status is documented, or surrogate decision maker is listed in patient medical record.: Yes Medication Reconciliation I have utilized all available resources to obtain, update and review the patients current medications (includes all prescriptions, OTC, herbals, cannabis, and nutritional supplements).: Yes
[2024-07-12] MEDS: lisinopriL 5 MG TABLET PO (13:28)
[2024-07-12 14:10] LABS: Cholesterol 121 mg/dL (0-200); HDL Direct 58 mg/dL; Lactate Dehydrogenase 295 U/L (120-246); Triglycerides 109 mg/dL (<150)
[2024-07-12 14:15] LABS: INR 1.2; Prothrombin Time 15.3 Seconds (11.1-14.7)
[2024-07-12 14:17] LABS: Partial Thromboplastin Time 23.9 Seconds (22.3-36.8)
[2024-07-12 14:21] LABS: LDL Cholesterol Direct 48 mg/dL
[2024-07-12] MEDS: hydrALAZINE HCL 20 MG/ML VIAL 10 MG IV PUSH (15:02)
--- NOTE | 2024-07-12 15:53 | ADMGEN ---
This patient, Gauri Banuelos, was admitted to 2 Medical Room 241-01. Patient/family oriented to hospital policies and general routines including ID bracelet, bed and alarms, visiting hours, pain management, procedures, bathroom and other care routines, personal items, smoking policy, room service/diet, and visiting hours. Information on how to activate the Rapid Response Team has been discussed. Patient/Family are encouraged to report perceived risks to care and to ask questions if they do not understand what they are told or what they should do.
[2024-07-12 16:56] LABS: Appearance Pleural Fluid Hazy (Clear); Color Pleural Fluid Yellow (Colorless); Lymphocytes Pleural Fluid 49 %; Macrophages Pleural Fluid 43 %; Mesothelial Cells Pleural Flui 6 %; Neutrophils Pleural Fluid 2 % (0-25); Nucleated Cell Pleural Fluid 220 /uL (0-1000); Pleural fluid source Pleural fluid; RBC Pleural Fluid < 2000 /uL (0-10000)
[2024-07-12] MEDS: AZITHROMYCIN 250 MG TABLET 500 MG PO (16:56)
[2024-07-13] VITALS (11 sets, daily range): BP systolic 141–162; BP diastolic 89–99; PULSE 91–106; RESP 16; TEMP 36.2–37.1; O2SAT 98–100
--- NOTE | 2024-07-13 | ECHO_ITS ---
Patient Info Name: Gauri Banuelos Age: 33 years : 1990 Gender: Female Ht: 61 in Wt: 138 lbs BSA: 1.66 m2 HR: 97 bpm BP: 162 / 98 mmHg Heart Rhythm: Sinus Rhythm Technical Quality: Fair Exam Date: 07/13/2024 10:57 AM Exam Location: Echo Lab Patient Status: Inpatient Admit Date: 07/12/2024 Staff Ordering Physician: Yanet Shaffer APRN Thoracic Surgeon: Saray Ring RDCS Attending Provider: Artur Beal MD Referring Physician: Deena GEORGE; Exam Type: CA echo doppler color flow Study Info Indications - Dyspnea - SOB Complete two-dimensional, color flow and Doppler transthoracic echocardiogram is performed. Summary 1. Complete two-dimensional, color flow and Doppler transthoracic echocardiogram is performed. 2. Left ventricular chamber dimension is moderately enlarged. 3. Left ventricular systolic function is severely reduced, estimated at 30-35%. 4. There is severely increased left ventricular wall thickness. 5. The left ventricular diastolic function is abnormal. 6. Left atrial chamber dimension is moderately enlarged. 7. There is moderate mitral valve regurgitation. 8. There is mild tricuspid valve regurgitation. 9. Mild pulmonary hypertension, estimated pulmonary arterial systolic pressure is 43 mmHg. 10. There is mild pulmonic regurgitation. Left Ventricle Left ventricular chamber dimension is moderately enlarged. Left ventricular systolic function is severely reduced, estimated at 30-35%. There is severely increased left ventricular wall thickness. The left ventricular diastolic function is abnormal. Right Ventricle Right ventricular chamber dimension is normal. Right ventricular systolic function is normal. Left Atria Left atrial chamber dimension is moderately enlarged. Right Atria Right atrial chamber dimension is normal. Atrial Septum Intact interatrial septum visualized by color flow imaging. Aortic Valve The aortic valve is trileaflet. There is mild aortic valve sclerosis. There is no aortic valve stenosis. There is trace aortic valve regurgitation. Pulmonic Valve The pulmonic valve is normal. There is no pulmonic valve stenosis. There is mild pulmonic regurgitation. Mitral Valve The mitral valve has thickened leaflets. There is no mitral valve stenosis. There is moderate mitral valve regurgitation. Tricuspid Valve The tricuspid valve leaflets are normal. There is no significant tricuspid valve stenosis. There is mild tricuspid valve regurgitation. Mild pulmonary hypertension, estimated pulmonary arterial systolic pressure is 43 mmHg. Inferior Vena Cava Normal inferior vena cava with <50% collapse upon inspiration consistent with elevated right atrial pressure, 10 mmHg. Aorta The aortic root size at the sinus of Valsalva is normal. Left Ventricular Outflow Tract Name Value Normal LVOT 2D LVOT Diameter 2.0 cm LVOT Doppler LVOT Peak Gradient 5 mmHg LVOT Mean Gradient 3 mmHg LVOT VTI 18 cm LVOT VTI/AV VTI Ratio 0.8 LVOT Stroke Volume 56 ml LVOT CO 5.1 l/min LVOT CI 3.1 l/min/m2 Pulmonic Valve Name Value Normal RVOT Doppler RVOT Peak Gradient 2 mmHg PV Doppler PV Peak Gradient 3 mmHg Mitral Valve Name Value Normal MV Doppler MV Decel [place] 666 cm/s2 MV PHT 47 ms MV Area (PHT) 4.7 cm2 4.0-5.0 MV Diastolic Function MV E Peak Velocity 108 cm/s MV A Peak Velocity 65 cm/s MV E/A 1.7 MV Decel Time 162 ms MV Annular TDI MV E/e' (Lateral) 10.9 <=8.0 Tricuspid Valve Name Value Normal TV Regurgitation Doppler TR Peak Velocity 289 cm/s TR Peak Gradient 33 mmHg Estimated PAP/RSVP RA Pressure 10 mmHg <=5 PA Systolic Pressure 43 mmHg <36 RV Systolic Pressure 43 mmHg <36 Aortic Valve Name Value Normal AV Doppler AV Peak Velocity 132 cm/s AV Peak Gradient 7 mmHg AV Mean Gradient 4 mmHg AV VTI 22 cm AV Area (Cont Eq VTI) 2.6 cm2 >=3.0 AV Area (Cont Eq Milo) 267.9 cm2 AV Regurgitation 2D LVOT Area 3.1 cm2 Ventricles Name Value Normal LV Dimensions 2D/MM IVS Diastolic Thickness (2D) 1.2 cm 0.6-1.0 LVID Diastole (2D) 5.4 cm 3.8-5.2 LVIW Diastolic Thickness (2D) 1.0 cm 0.6-0.9 LVID Systole (2D) 4.1 cm 2.2-3.5 LVOT Diameter 2.0 cm LV Mass (2D Cubed) 242.89 g 67.00-162.00 LV Mass Index (2D Cubed) 147 g/m2 43-95 Relative Wall Thickness (2D) 0.38 LV Fractional Shortening/Ejection Fraction 2D/MM LV Fractional Shortening (2D) 25 % 27-45 LV EF (2D Teicholz) 49 % 54-74 LV Diastolic Volume (4C MOD) 163 ml LV EF (4C MOD) 49 % LV Diastolic Volume (2C MOD) 187 ml LV EF (2C MOD) 48 % LV Diastolic Volume (BP MOD) 180 ml 46-106 LV Diastolic Volume Index (BP MOD) 109 ml/m2 29-61 LV Systolic Volume (BP MOD) 96 ml 14-42 LV Systolic Volume Index (BP MOD) 58 ml/m2 8-24 LV EF (BP MOD) 47 % 54-74 LV Diastolic Length (4C) 8.7 cm LV Systolic Length (4C) 7.3 cm LV Stroke Volume (4C MOD) 80 ml Atria Name Value Normal LA Dimensions LA Volume (4C A-L) 64 ml LA Volume (BP A-L) 92 ml RA Dimensions RA Area (4C) 13.9 cm2 <=18.0 Report Signatures
[2024-07-13] MEDS: ACETAMINOPHEN 325 MG TABLET 650 MG PO ×2 (00:59→08:30)
[2024-07-13 05:48] LABS: Basophils Percent Auto 0.5 % (0.2-1.2); Eosinophils Absolute Auto 0.1 K/mm3 (0-0.3); Eosinophils Percent Auto 0.8 % (0-4.4); Hematocrit 45.4 % (37.0-47.0); Hemoglobin 14.6 g/dL (12.0-15.0); Immature Granulocyte Absolute 0.02 K/mm3 (0.00-0.031); Immature Granulocyte Percent A 0.3 % (0-0.5); Lymphocytes Absolute Auto 1.36 K/mm3 (0.9-3.2); Lymphocytes Percent Auto 17.6 % (18.3-44.2); Mean Corpuscular HGB Conc 32.2 g/dl (32-36); Mean Platelet Volume 11.2 fl (7.4-10.4); Monocytes Absolute Auto 0.4 K/mm3 (0.1-0.6); Monocytes Percent Auto 5.6 % (2.6-8.5); Neutrophils Absolute Auto 5.8 K/mm3 (1.3-6.7); Neutrophils Percent Auto 75.2 % (45.5-73.1); Platelet Count Result 233 k/mm3 (150-375); Red Blood Count 5.22 M/mm3 (4.2-5.4); Red Cell Distribution Width 14.8 % (11.5-14.5); White Blood Count 7.7 K/mm3 (4.5-10.0)
[2024-07-13 06:02] LABS: Alanine Aminotransferase 102 U/L (6-35); Alkaline Phosphatase 64 U/L (38-126); Anion Gap 7 mmol/L (4-12); Aspartate Amino Transferase 65 U/L (14-36); Bilirubin,Total 1.2 mg/dL (0.2-1.3); Blood Urea Nitrogen 10 mg/dL (7-17); Carbon Dioxide 23 mmol/L (22-30); Chloride 106 mmol/L (98-107); Estimated CRCL calculation 78 ml/min; Estimated Glomerular Filt Rate > 60; Glucose 89 mg/dL (65-110); Magnesium 1.9 mg/dL (1.6-2.3); Potassium 3.8 mmol/L (3.4-5.0); Sodium 136 mmol/L (137-145)
[2024-07-13] MEDS: AZITHROMYCIN 250 MG TABLET 500 MG PO (08:31)
[2024-07-13] MEDS: lisinopriL 5 MG TABLET PO ×2 (08:32→12:32)
--- NOTE | 2024-07-13 15:20 | P.PNIM_ITS ---
Progress Note: A&P Assessment and Plan (1) Acute heart failure: Code(s): I50.9 - Heart failure, unspecified Status: Acute Assessment and Plan: * chest x-ray showed bibasilar atelectasis versus pneumonia * chest/abdomen/ pelvis CTA showed moderate right pleural effusion and small to moderate left pleural effusion, mild pulmonary edema, gallbladder wall thickening likely related to fluid overload state * proBNP 9890, troponin 0.018 * respiratory panel negative for influenza A and B, RSV, COVID * patient was given 40 mg IV push Lasix while in the ED * will obtain echocardiogram 07/13 * Echo showing severely reduced left ventricular systolic function with an estimated EF of 30-35%, severely increased left ventricular wall thickness, mild pulmonary hypertension with an estimated pulmonary arterial systolic pressure of 53mmHg, abnormal diastolic function * continue Lasix 40 mg daily * Patient started on Entresto, sprionolactone, and Jardiance * Cardiology consulted * Cardiopulmonary rehab ordered. (2) Bilateral pleural effusion: Code(s): J90 - Pleural effusion, not elsewhere classified Status: Acute Assessment and Plan: * chest/abdomen/ pelvis CTA showed moderate right pleural effusion and small to moderate left pleural effusion * diagnostic and therapeutic thoracentesis obtained today and yielded 700 ml pleural fluid. (3) Pneumonia: Code(s): J18.9 - Pneumonia, unspecified organism Status: Acute Assessment and Plan: * CXR shown pneumonia * Will start Rocephin and Azithromycin * Duonebs as needed 07/13 * Continue Augmentin and Azithromycin * Duonebs as needed (4) HTN (hypertension): Code(s): I10 - Essential (primary) hypertension Status: Acute Assessment and Plan: * blood pressure ranging 148/94 to 182/134 * will start lisinopril 5 mg daily * hydralazine p.r.n. for systolic greater than 180 07/13 * Lisinopril discontinued * Started Entresto for new onset heart failure (5) Abnormal transaminases: Code(s): R74.8 - Abnormal levels of other serum enzymes Status: Acute Assessment and Plan: * initial AST 61, ALT 95 * continue to trend 07/13 * AST 65, ALT 102 * Continue to trend * Will check Hepatitis panel * CT of the chest/abdomen/pelvis shown minimal heterogeneity of the liver * US of nonspecific borderline gallbladder wall thickening but with negative sonographic Elise's on and without gallbladder dilation or cholelithiasis to suggest acute cholecystitis, liver has normal echogenicity and contour, with a smooth surface (6) Abnormal drug screen: Code(s): R89.2 - Abnormal level of other drugs, medicaments and biological substances in specimens from other organs, systems and tissues Status: Acute Assessment and Plan: * urine drug screen positive for amphetamines * patient denies any recreational drug history (7) Abnormal finding on urinalysis: Code(s): R82.90 - Unspecified abnormal findings in urine Status: Acute Assessment and Plan: * UA showed cloudy appearance, 1+ urine protein, positive nitrate, 3-5 urine RBC, many urine squamous epithelial cells, 4+ bacteria * Urine culture pending 07/13 * Urine culture still pending * Continue Rocephin Time Spent With Patient Time with patient: 25 - 35 minutes Subjective Date/time seen: 07/13/24 15:20 Interval history: Interval history: This is a 33-year-old female with no significant past medical history who presented to the hospital with complaints of shortness of breath / dyspnea. patient states that she noticed swelling in her right lower extremity about 9 days ago and then started having shortness of breath about 4 days ago that progr essively worsened. She denies any recent sick contacts. She denies any fever, chills, nausea, vomiting, diarrhea, abdominal pain, chest pain. Workup in the hospital included a chest x-ray which showed bibasilar atelectasis versus pneumonia. Right ankle x-ray which was negative for any acute abnormality. Chest/abdomen/ pelvis CTA showed moderate right pleural effusion is small to moderate left pleural effusion, mild pulmonary edema, gallbladder wall thickening likely related to fluid overload state. Abdomen ultrasound showed a nonspecific borderline gallbladder wall thickening but with negative Elise sign and without gallbladder dilation or cholelithiasis to suggest acute cholecystitis. Given the persistent right pleural effusion with pulmonary edema on CT is likely related to congestive heart failure. Initial labs showed a white blood cell count of 10.2, D-dimer 4.78, sodium 136, AST 61, ALT 95, proBNP 9890, troponin 0.018. UA was obtained which showed cloudy urine appearance, 1+ urine protein, positive nitrate, 3-5 urine RBC, many urine squamous epithelial cells, 4+ urine bacteria. Urine test was negative. Urine drug test was positive for amphetamine. Respiratory panel was negative for influenza A and B, RSV, COVID. EKG showed sinus tach with a rate of 113, QTC 448. Patient was given 40 mg IV push Lasix while in the ED. Subjective: Patient denies any new complaints today. She states she is feeling much better than yesterday. I discussed echo results with her and she admits to taking Adderall that her boyfriend gave her and that maybe it had affected her heart. I also discussed her urine drug screen was positive for amphetamines and she stated that she took some cold medicine when she was feeling short of breath. She still denies any elicit drug history or exposure to viruses. Review of Systems Review of Systems: All systems reviewed & are unremarkable except as noted in HPI and below Exam Narrative: General: In no acute distress, well nourished Cardiac: Normal S1 and S2. RRR, No murmur, gallops or friction rubs, peripheral pulses intact. Respiratory: Lungs clear to auscultation, no adventitious lung sounds, currently on room air Gastrointestinal: soft, non-distended, non-tender, normoactive bowel sounds. : voiding without difficulty. Extremities: moves all extremities well, mild edema to RLE around ankle Neuro: Alert and oriented x4 Objective Data Vital Signs Vital Signs: Vital Signs - 24 hr 07/12/24 16:00 07/12/24 16:00 07/12/24 16:14 Temperature 97.7 F Pulse Rate 98 97 Respiratory Rate 18 Blood Pressure 149/92 H Pulse Oximetry 100 97 Oxygen Delivery Room Air Fraction of Inspired Oxygen 07/12/24 20:00 07/12/24 20:00 07/12/24 20:02 Temperature Pulse Rate 115 H Respiratory Rate Blood Pressure Pulse Oximetry 98 Oxygen Delivery Room Air Room Air Fraction of Inspired Oxygen 21 07/12/24 20:07 07/13/24 00:00 07/13/24 04:00 Temperature 98.9 F Pulse Rate 112 H 99 106 H Respiratory Rate 16 Blood Pressure 140/74 Pulse Oximetry 96 Oxygen Delivery Fraction of Inspired Oxygen 07/13/24 06:07 07/13/24 08:29 07/13/24 08:31 Temperature 98.4 F 97.1 F L Pulse Rate 97 96 96 Respiratory Rate 16 16 16 Blood Pressure 162/98 H 154/99 H Pulse Oximetry 98 99 99 Oxygen Delivery Room Air Fraction of Inspired Oxygen 21 07/13/24 08:31 07/13/24 12:00 07/13/24 14:00 Temperature 98.7 F Pulse Rate 106 H 101 H 100 Respiratory Rate 16 Blood Pressure 146/89 H Pulse Oximetry 99 Oxygen Delivery Fraction of Inspired Oxygen Intake/Output Intake/Output: Intake & Output 07/10/24 07/11/24 07/12/24 07/13/24 23:59 23:59 23:59 23:59 Intake Total 290 542 Output Total 700 Balance -410 542 Meds/Results Medications: Active Medications Generic Name Dose Route Start Last Admin Trade Name Freq PRN Reason Stop Dose Admin Acetaminophen 650 mg 07/12/24 13:06 07/13/24 08:30 Acetaminophen 325 Mg Tablet PO 650 mg Q4H PRN Administration Mild Pain (1-3) or Fever Albuterol/Ipratropium 3 ml 07/12/24 13:32 Ipratropium 0.5 Mg/Albuterol Sulfate 2.5 Mg Ampul.Neb 3 Ml INHALATION Q6HRT PRN Shortness of breath/dyspnea Amoxicillin/Clavulanate Potassium 1 tablet 07/13/24 21:00 Amoxicillin/Clavulanate K 875-125 Mg Tab PO Q12HR JEAN Azithromycin 500 mg 07/13/24 09:00 07/13/24 08:31 Azithromycin 250 Mg Tablet PO 07/16/24 09:01 500 mg DAILY JEAN Administration Hydralazine HCl 10 mg 07/12/24 13:20 07/12/24 15:02 Hydralazine Hcl 20 Mg/Ml Vial IV PUSH 10 mg Q8H PRN Administration Blood Pressure - High Lisinopril 10 mg 07/14/24 09:00 Lisinopril 10 Mg Tablet PO QAM JEAN Ondansetron HCl 4 mg 07/12/24 13:06 Ondansetron Inj 4 Mg/2 Ml Vial IV PUSH Q4H PRN Nausea Perflutren Lipid Microsphere 0 ml 07/12/24 13:04 Perflutren Lipid Microspheres 1.5 Ml Vial Diluted To 10 Ml Total Volume IV PUSH 07/15/24 13:04 ONCE PRN adequate visualization Protocol Radiology Results: ITS Impressions Ankle X-Ray 07/12/24 08:40 Impression: 1: No acute bone or joint abnormality. Chest/Abdomen/Pelvis CTA 07/12/24 11:40 Impression: Moderate right pleural effusion and small to moderate left pleural effusion. Mild pulmonary edema, predominantly interstitial edema. Minimal heterogeneity of liver. Correlate for congestive hepatopathy. Gallbladder wall thickening likely related to fluid overload state. Abdomen Ultrasound 07/12/24 12:39 IMPRESSION: 1. Nonspecific borderline gallbladder wall thickening but with negative sonographic Elise's on and without gallbladder dilation or cholelithiasis to suggest acute cholecystitis. Given the persistent right pleural effusion as well as the Cardia megaly with pulmonary edema seen on prior CT the prior more prominent wall thickening is likely related to congestive heart failure. If there is continued high clinical concern for acute cholecystitis could consider HIDA scan for further evaluation. Chest X-Ray 07/12/24 15:53 IMPRESSION: No pneumothorax following right-sided thoracentesis with resolution of the right-sided pleural effusion, as detailed above. Thoracentesis Ultrasound 07/12/24 16:03 IMPRESSION: 1. Successful ultrasound-guided thoracentesis yielding 700 mL of clear yellow fluid. Labs Labs: Laboratory Results - last 24 hr 07/12/24 07/13/24 15:10 04:46 WBC 7.7 RBC 5.22 Hgb 14.6 Hct 45.4 MCV 87.0 MCH 28.0 MCHC 32.2 RDW 14.8 H Plt Count 233 MPV 11.2 H Immature Gran % (Auto) 0.3 Neut % (Auto) 75.2 H Lymph % (Auto) 17.6 L Churchill % (Auto) 5.6 Eos % (Auto) 0.8 Baso % (Auto) 0.5 Lymph # (Auto) 1.36 Churchill # (Auto) 0.4 Eos # (Auto) 0.1 Baso # (Auto) 0.0 Abs Immat Gran (auto) 0.02 Absolute Neuts (auto) 5.8 Absolute Nucleated RBC 0.000 Nucleated RBC % 0.0 Sodium 136 L Potassium 3.8 Chloride 106 Carbon Dioxide 23 Anion Gap 7 BUN 10 Creatinine 0.76 Estim Creat Clear Calc 78 Estimated GFR > 60 Glucose 89 Calcium 8.0 L Magnesium 1.9 Total Bilirubin 1.2 AST 65 H ALT 102 H Alkaline Phosphatase 64 Total Protein 6.0 L Albumin 3.0 L Pleural Fluid Source Pleural fluid Pleural Color Yellow Pleural Appearance Hazy Pleural RBC < 2000 Pleural Nuc Cells 220 Pleural Neutrophils 2 Pleural Lymphocytes 49 Pleural Macrophages 43 Pleural Mesothelial 6 Quality VTE Prophylaxis VTE prophylaxis: mechanical ordered
[2024-07-13] MEDS: SPIRONOLACTONE 12.5 MG TABLET PO (15:34)
[2024-07-13] MEDS: FUROSEMIDE 40 MG TABLET PO (15:34)
[2024-07-13 18:11] LABS: Hepatitis B Surface Antigen Negative (Negative)
[2024-07-13 18:16] LABS: HAV RESULT Negative (Negative); Hepatitis B Core IgM Result Negative (Negative)
[2024-07-13 18:28] LABS: Hepatitis C Virus Antibody Negative (Negative)
[2024-07-13] MEDS: SACUBITRIL/VALSARTAN 24-26 MG TABLET 1 TAB PO (20:22)
[2024-07-13] MEDS: AMOXICILLIN/CLAVULANATE K 875-125 MG TAB 1 TABLET PO (20:22)
[2024-07-14] VITALS (10 sets, daily range): BP systolic 107–142; BP diastolic 70–89; PULSE 78–107; RESP 16–18; TEMP 36.5–37; O2SAT 97–98
[2024-07-14 05:42] LABS: Basophils Absolute Auto 0.1 K/mm3 (0.0-0.1); Basophils Percent Auto 0.7 % (0.2-1.2); Eosinophils Absolute Auto 0.1 K/mm3 (0-0.3); Eosinophils Percent Auto 1.9 % (0-4.4); Hematocrit 47.4 % (37.0-47.0); Hemoglobin 15.2 g/dL (12.0-15.0); Immature Granulocyte Absolute 0.02 K/mm3 (0.00-0.031); Immature Granulocyte Percent A 0.3 % (0-0.5); Lymphocytes Absolute Auto 2.42 K/mm3 (0.9-3.2); Lymphocytes Percent Auto 33.6 % (18.3-44.2); Mean Corpuscular HGB Conc 32.1 g/dl (32-36); Mean Corpuscular Hemoglobin 27.8 pg (26-34); Mean Corpuscular Volume 86.8 fl (80-100); Mean Platelet Volume 11.1 fl (7.4-10.4); Monocytes Absolute Auto 0.7 K/mm3 (0.1-0.6); Monocytes Percent Auto 9.3 % (2.6-8.5); Neutrophils Absolute Auto 3.9 K/mm3 (1.3-6.7); Neutrophils Percent Auto 54.2 % (45.5-73.1); Platelet Count Result 251 k/mm3 (150-375); Red Blood Count 5.46 M/mm3 (4.2-5.4); Red Cell Distribution Width 15.1 % (11.5-14.5); White Blood Count 7.2 K/mm3 (4.5-10.0)
[2024-07-14 06:02] LABS: Alanine Aminotransferase 79 U/L (6-35); Albumin Level 2.8 g/dL (3.5-5.1); Alkaline Phosphatase 65 U/L (38-126); Anion Gap 4 mmol/L (4-12); Aspartate Amino Transferase 38 U/L (14-36); Bilirubin,Total 0.6 mg/dL (0.2-1.3); Blood Urea Nitrogen 9 mg/dL (7-17); Calcium 7.9 mg/dL (8.4-10.2); Carbon Dioxide 24 mmol/L (22-30); Chloride 107 mmol/L (98-107); Estimated CRCL calculation 68 ml/min; Estimated Glomerular Filt Rate > 60; Glucose 97 mg/dL (65-110); Potassium 3.8 mmol/L (3.4-5.0); Sodium 135 mmol/L (137-145)
[2024-07-14] MEDS: SACUBITRIL/VALSARTAN 24-26 MG TABLET 1 TAB PO ×2 (08:22→21:30)
[2024-07-14] MEDS: EMPAGLIFLOZIN 10 MG TABLET PO (08:22)
[2024-07-14] MEDS: SPIRONOLACTONE 12.5 MG TABLET PO (08:22)
[2024-07-14] MEDS: FUROSEMIDE 40 MG TABLET PO (08:22)
[2024-07-14] MEDS: AMOXICILLIN/CLAVULANATE K 875-125 MG TAB 1 TABLET PO ×2 (08:22→21:30)
[2024-07-14] MEDS: AZITHROMYCIN 250 MG TABLET 500 MG PO (08:22)
[2024-07-14] MEDS: FUROSEMIDE INJ 40 MG/4 ML VIAL IV PUSH (09:29)
[2024-07-14] MEDS: METOPROLOL SUCCINATE EXT REL 25 MG TABCR PO (09:29)
--- NOTE | 2024-07-14 10:37 | PM.CNCAR ---
Assessment and Plan Assessment and plan (1) Acute heart failure: Code(s): I50.9 - Heart failure, unspecified Status: Acute (2) Dilated cardiomyopathy: Code(s): I42.0 - Dilated cardiomyopathy Status: Acute Plan 33-year-old woman with no significant past medical history presented with 2 weeks of lower extremity swelling as well as shortness of breath for 1 week found to have positive urine drug screen for amphetamines and now admitted for acute systolic heart failure/dilated cardiomyopathy Acute new onset systolic heart failure -she is now euvolemic -started on metoprolol succinate 25 mg p.o. daily today -continue Entresto 24-26 mg p.o. b.i.d., spironolactone 12.5 mg p.o. daily, Jardiance p.o. daily -recommend abstinence from illicit drug use and amphetamine based drugs Dilated cardiomyopathy -she can be discharged on this regimen to follow up outpatient where she will obtain coronary CTA to define her coronary anatomy -will also pursue PYP scan and cardiac MRI in the outpatient setting -in the meantime she will be fitted for a LifeVest -recommend abstinence from illicit drug use and amphetamine based drugs Hypertension -goal systolic blood pressure less than 120 mm Hg -continue Entresto 24-26 mg p.o. b.i.d., spironolactone 12.5 mg p.o. daily, Toprol 25 mg p.o. daily -it would appear that she either has infiltrative cardiomyopathy or years of hypertension possibly from amphetamine use given the degree of left ventricular hypertrophy found a transthoracic echocardiogram -recommend abstinence from illicit drug use and amphetamine based drugs Can be discharged after lifevest History of Present Illness History of Present Illness Consult date/time: 07/14/24 10:37 Requesting physician: Artur Beal MD Consult reason: congestive heart failure Reason For Visit: New Onset Heart Failure with Pleural Effusion Narrative: 33-year-old woman with no significant past medical history presented with 2 weeks of lower extremity swelling as well as shortness of breath for 1 week. She has not noticed any recent viral illnesses or vaccinations. She is typically very active and has no cardiopulmonary limitations to physical activity. 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 Denies any chest pain or shortness of breath. In time, she underwent termination. She denies any depression significant stress from this event. She denied drug use however her urine drug screen is positive for amphetamines. Review of Systems Cardiovascular: Cardiovascular: Reports as per HPI Respiratory: Respiratory: Reports as per HPI [facility] Surgical History Surgical History (Updated 07/12/24 @ 18:01 by Yanet Shaffer APRN) H/O elbow surgery Social History Social History Smoking status: Never smoker Alcohol intake: former Substance use: never Last use: 2020 Do You Feel Safe in your Home?: Yes Lack of Transportation: No Lack of Food: Never True Current Housing: I Have Housing Concerned About Future Housing: No Difficulty Paying Gas/Electric Bills: No Difficulty Paying for Meds: No Currently Unemployed: No Education: Associate Degree Difficulty w/ Childcare or Family Care: No Spiritual care concerns: No Meds Home Medications and Allergies Allergies Allergy/AdvReac Type Severity Reaction Status Date / Time No Known Allergies Allergy Unknown Verified 07/12/24 07:26 Vital Signs Vital Signs - 24 hr 07/13/24 12:00 07/13/24 14:00 07/13/24 16:00 Temperature 37.1 C Pulse Rate 101 H 100 96 Respiratory Rate 16 Blood Pressure 146/89 H Pulse Oximetry 99 Oxygen Delivery Fraction of Inspired Oxygen 07/13/24 20:00 07/13/24 20:00 07/13/24 20:14 Temperature Pulse Rate 91 Respiratory Rate Blood Pressure Pulse Oximetry 100 Oxygen Delivery Room Air Room Air Fraction of Inspired Oxygen 21 07/13/24 20:22 07/14/24 00:00 07/14/24 04:00 Temperature 36.6 C Pulse Rate 93 101 H 91 Respiratory Rate 16 Blood Pressure 141/91 H Pulse Oximetry 99 Oxygen Delivery Fraction of Inspired Oxygen 07/14/24 04:33 07/14/24 09:29 Temperature 37.0 C Pulse Rate 87 80 Respiratory Rate 16 Blood Pressure 142/89 H Pulse Oximetry 97 Oxygen Delivery Fraction of Inspired Oxygen Exam Const: General: comfortable HENMT: Mouth: Yes dry mucous membranes Eyes: EOM: EOMs intact bilaterally Neck: Neck: no JVD Resp: Effort & Inspection: normal respiratory effort Auscultation: clear to auscultation bilaterally Cardio: Rate: regular rate Rhythm: regular rhythm Extrem: General: no pedal edema Results Labs and Meds 07/14/24 04:40 07/14/24 04:40 Lab results: Cardiac Enzymes 07/14/24 Range/Units 04:40 AST 38 H (14-36) U/L CBC 07/14/24 Range/Units 04:40 WBC 7.2 (4.5-10.0) K/mm3 RBC 5.46 H (4.2-5.4) M/mm3 Hgb 15.2 H (12.0-15.0) g/dL Hct 47.4 H (37.0-47.0) % Plt Count 251 (150-375) k/mm3 Lymph # (Auto) 2.42 (0.9-3.2) K/mm3 Garza # (Auto) 0.7 H (0.1-0.6) K/mm3 Eos # (Auto) 0.1 (0-0.3) K/mm3 Baso # (Auto) 0.1 (0.0-0.1) K/mm3 Comprehensive Metabolic Panel 07/14/24 Range/Units 04:40 Sodium 135 L (137-145) mmol/L Potassium 3.8 (3.4-5.0) mmol/L Chloride 107 (98-107) mmol/L Carbon Dioxide 24 (22-30) mmol/L BUN 9 (7-17) mg/dL Creatinine 0.88 (0.7-1.0) mg/dL Glucose 97 (65-110) mg/dL Calcium 7.9 L (8.4-10.2) mg/dL AST 38 H (14-36) U/L ALT 79 H (6-35) U/L Alkaline Phosphatase 65 (38-126) U/L Total Protein 5.0 L (6.3-8.2) g/dL Albumin 2.8 L (3.5-5.1) g/dL Intake and Output 07/13/24 07/14/24 07/14/24 23:59 07:59 15:59 Intake Total 590 250 240 Balance 590 250 240 Intake: Oral 590 250 240 Other: # Unmeasured Voids 3 2
--- NOTE | 2024-07-14 14:21 | PCCPR ---
Received consult for Cardiac rehab. Went to see patient in her room, discussed cardiopulmonary rehab, gave patient a flier with further information.
--- NOTE | 2024-07-14 19:17 | P.PNIM_ITS ---
Progress Note: A&P Assessment and Plan (1) Acute heart failure: Code(s): I50.9 - Heart failure, unspecified Status: Acute Assessment and Plan: * chest x-ray showed bibasilar atelectasis versus pneumonia * chest/abdomen/ pelvis CTA showed moderate right pleural effusion and small to moderate left pleural effusion, mild pulmonary edema, gallbladder wall thickening likely related to fluid overload state * proBNP 9890, troponin 0.018 * respiratory panel negative for influenza A and B, RSV, COVID * patient was given 40 mg IV push Lasix while in the ED * will obtain echocardiogram 07/13 * Echo showing severely reduced left ventricular systolic function with an estimated EF of 30-35%, severely increased left ventricular wall thickness, mild pulmonary hypertension with an estimated pulmonary arterial systolic pressure of 53mmHg, abnormal diastolic function * continue Lasix 40 mg daily * Patient started on Entresto, spironolactone, and Jardiance * Cardiology consulted * Cardiopulmonary rehab ordered. 07/14 * Cardiology recommending Life vest * Case coordination pending medicaid approval for life vest * Continue Entresto, spironolactone, Jardiance and Metoprolol (2) Bilateral pleural effusion: Code(s): J90 - Pleural effusion, not elsewhere classified Status: Acute Assessment and Plan: * chest/abdomen/ pelvis CTA showed moderate right pleural effusion and small to moderate left pleural effusion * 07/12/24 diagnostic and therapeutic thoracentesis obtained today and yielded 700 ml pleural fluid. (3) Pneumonia: Code(s): J18.9 - Pneumonia, unspecified organism Status: Acute Assessment and Plan: * CXR shown pneumonia * Continue Augmentin and Azithromycin * Duonebs as needed (4) HTN (hypertension): Code(s): I10 - Essential (primary) hypertension Status: Inactive Assessment and Plan: * Continue Entresto, spironolactone and Metoprolol (5) Abnormal transaminases: Code(s): R74.8 - Abnormal levels of other serum enzymes Status: Acute Assessment and Plan: * Liver enzymes trending downward * AST 38, ALT 79 * Hepatitis panel negative (6) Abnormal drug screen: Code(s): R89.2 - Abnormal level of other drugs, medicaments and biological substances in specimens from other organs, systems and tissues Status: Acute Assessment and Plan: * urine drug screen positive for amphetamines * patient denies any recreational drug history (7) Abnormal finding on urinalysis: Code(s): R82.90 - Unspecified abnormal findings in urine Status: Acute Assessment and Plan: * UA showed cloudy appearance, 1+ urine protein, positive nitrate, 3-5 urine RBC, many urine squamous * Urine culture negative * Rocephin discontinued. Time Spent With Patient Time with patient: 15 - 25 minutes Subjective Date/time seen: 07/14/24 19:17 Interval history: Interval history: This is a 33-year-old female with no significant past medical history who presented to the hospital with complaints of shortness of breath / dyspnea. patient states that she noticed swelling in her right lower extremity about 9 days ago and then started having shortness of breath about 4 days ago that progressively worsened. She denies any recent sick contacts. She denies any fever, chills, nausea, vomiting, diarrhea, abdominal pain, chest pain. Workup in the hospital included a chest x-ray which showed bibasilar atelectasis versus pneumonia. Right ankle x-ray which was negative for any acute abnormality. Chest/abdomen/ pelvis CTA showed moderate right pleural effusion is small to moderate left pleural effusion, mild pulmonary edema, gallbladder wall thic kening likely related to fluid overload state. Abdomen ultrasound showed a nonspecific borderline gallbladder wall thickening but with negative Elise sign and without gallbladder dilation or cholelithiasis to suggest acute cholecystitis. Given the persistent right pleural effusion with pulmonary edema on CT is likely related to congestive heart failure. Initial labs showed a white blood cell count of 10.2, D-dimer 4.78, sodium 136, AST 61, ALT 95, proBNP 9890, troponin 0.018. UA was obtained which showed cloudy urine appearance, 1+ urine protein, positive nitrate, 3-5 urine RBC, many urine squamous epithelial cells, 4+ urine bacteria. Urine test was negative. Urine drug test was positive for amphetamine. Respiratory panel was negative for influenza A and B, RSV, COVID. EKG showed sinus tach with a rate of 113, QTC 448. Patient was given 40 mg IV push Lasix while in the ED. Subjective: Patient denies any new complaints today. Labs reviewed. Review of Systems Review of Systems: All systems reviewed & are unremarkable except as noted in HPI and below Exam Narrative: General: In no acute distress, well nourished Cardiac: Normal S1 and S2. RRR, No murmur, gallops or friction rubs, peripheral pulses intact. Respiratory: Lungs clear to auscultation, no adventitious lung sounds, currently on room air Gastrointestinal: soft, non-distended, non-tender, normoactive bowel sounds. : voiding without difficulty. Extremities: moves all extremities well Neuro: Alert and oriented x4 Objective Data Vital Signs Vital Signs: Vital Signs - 24 hr 07/13/24 20:00 07/13/24 20:00 07/13/24 20:14 Temperature Pulse Rate 91 Respiratory Rate Blood Pressure Pulse Oximetry 100 Oxygen Delivery Room Air Room Air Fraction of Inspired Oxygen 21 07/13/24 20:22 07/14/24 00:00 07/14/24 04:00 Temperature 97.9 F Pulse Rate 93 101 H 91 Respiratory Rate 16 Blood Pressure 141/91 H Pulse Oximetry 99 Oxygen Delivery Fraction of Inspired Oxygen 07/14/24 04:33 07/14/24 08:00 07/14/24 09:29 Temperature 98.6 F Pulse Rate 87 101 H 80 Respiratory Rate 16 Blood Pressure 142/89 H Pulse Oximetry 97 Oxygen Delivery Fraction of Inspired Oxygen 07/14/24 12:00 07/14/24 14:00 07/14/24 16:00 Temperature 97.7 F Pulse Rate 107 H 84 101 H Respiratory Rate 16 Blood Pressure 140/78 Pulse Oximetry 97 Oxygen Delivery Fraction of Inspired Oxygen Intake/Output Intake/Output: Intake & Output 07/11/24 07/12/24 07/13/24 07/14/24 23:59 23:59 23:59 23:59 Intake Total 290 1132 802 Output Total 700 Balance -410 1132 802 Meds/Results Medications: Active Medications Generic Name Dose Route Start Last Admin Trade Name Freq PRN Reason Stop Dose Admin Acetaminophen 650 mg 07/12/24 13:06 07/13/24 08:30 Acetaminophen 325 Mg Tablet PO 650 mg Q4H PRN Administration Mild Pain (1-3) or Fever Albuterol/Ipratropium 3 ml 07/12/24 13:32 Ipratropium 0.5 Mg/Albuterol Sulfate 2.5 Mg Ampul.Neb 3 Ml INHALATION Q6HRT PRN Shortness of breath/dyspnea Amoxicillin/Clavulanate Potassium 1 tablet 07/13/24 21:00 07/14/24 08:22 Amoxicillin/Clavulanate K 875-125 Mg Tab PO 1 tablet Q12HR JEAN Administration Azithromycin 500 mg 07/13/24 09:00 07/14/24 08:22 Azithromycin 250 Mg Tablet PO 07/16/24 09:01 500 mg DAILY JEAN Administration Empagliflozin 10 mg 07/14/24 09:00 07/14/24 08:22 Empagliflozin 10 Mg Tablet PO 10 mg DAILY JEAN Administration Hydralazine HCl 10 mg 07/12/24 13:20 07/12/24 15:02 Hydralazine Hcl 20 Mg/Ml Vial IV PUSH 10 mg Q8H PRN Administration Blood Pressure - High Metoprolol Succinate 25 mg 07/14/24 09:00 07/14/24 09:29 Metoprolol Succinate Ext Rel 25 Mg Tabcr PO 25 mg QAM JEAN Administration Ondansetron HCl 4 mg 07/12/24 13:06 Ondansetron Inj 4 Mg/2 Ml Vial IV PUSH Q4H PRN Nausea Perflutren Lipid Microsphere 0 ml 07/12/24 13:04 Perflutren Lipid Microspheres 1.5 Ml Vial Diluted To 10 Ml Total Volume IV PUSH 07/15/24 13:04 ONCE PRN adequate visualization Protocol Sacubitril/Valsartan 1 tab 07/13/24 21:00 07/14/24 08:22 Sacubitril/Valsartan 24-26 Mg Tablet PO 1 tab Q12HR JEAN Administration Spironolactone 12.5 mg 07/13/24 15:30 07/14/24 08:22 Spironolactone 12.5 Mg Tablet PO 12.5 mg QAM JEAN Administration Radiology Results: ITS Impressions Ankle X-Ray 07/12/24 08:40 Impression: 1: No acute bone or joint abnormality. Chest/Abdomen/Pelvis CTA 07/12/24 11:40 Impression: Moderate right pleural effusion and small to moderate left pleural effusion. Mild pulmonary edema, predominantly interstitial edema. Minimal heterogeneity of liver. Correlate for congestive hepatopathy. Gallbladder wall thickening likely related to fluid overload state. Abdomen Ultrasound 07/12/24 12:39 IMPRESSION: 1. Nonspecific borderline gallbladder wall thickening but with negative sonographic Elise's on and without gallbladder dilation or cholelithiasis to suggest acute cholecystitis. Given the persistent right pleural effusion as well as the Cardia megaly with pulmonary edema seen on prior CT the prior more prominent wall thickening is likely related to congestive heart failure. If there is continued high clinical concern for acute cholecystitis could consider HIDA scan for further evaluation. Chest X-Ray 07/12/24 15:53 IMPRESSION: No pneumothorax following right-sided thoracentesis with resolution of the right-sided pleural effusion, as detailed above. Thoracentesis Ultrasound 07/12/24 16:03 IMPRESSION: 1. Successful ultrasound-guided thoracentesis yielding 700 mL of clear yellow fluid. Labs Labs: Laboratory Results - last 24 hr 07/14/24 04:40 WBC 7.2 RBC 5.46 H Hgb 15.2 H Hct 47.4 H MCV 86.8 MCH 27.8 MCHC 32.1 RDW 15.1 H Plt Count 251 MPV 11.1 H Immature Gran % (Auto) 0.3 Neut % (Auto) 54.2 Lymph % (Auto) 33.6 [place] % (Auto) 9.3 H Eos % (Auto) 1.9 Baso % (Auto) 0.7 Lymph # (Auto) 2.42 [place] # (Auto) 0.7 H Eos # (Auto) 0.1 Baso # (Auto) 0.1 Abs Immat Gran (auto) 0.02 Absolute Neuts (auto) 3.9 Absolute Nucleated RBC 0.000 Nucleated RBC % 0.0 Sodium 135 L Potassium 3.8 Chloride 107 Carbon Dioxide 24 Anion Gap 4 BUN 9 Creatinine 0.88 Estim Creat Clear Calc 68 Estimated GFR > 60 Glucose 97 Calcium 7.9 L Total Bilirubin 0.6 AST 38 H ALT 79 H Alkaline Phosphatase 65 Total Protein 5.0 L Albumin 2.8 L Quality VTE Prophylaxis VTE prophylaxis: mechanical ordered
[2024-07-15] VITALS (8 sets, daily range): BP systolic 108–123; BP diastolic 76–87; PULSE 72–101; RESP 16–18; TEMP 36.4–36.9; O2SAT 98–100
[2024-07-15 05:17] LABS: Basophils Absolute Auto 0.1 K/mm3 (0.0-0.1); Eosinophils Absolute Auto 0.1 K/mm3 (0-0.3); Eosinophils Percent Auto 1.6 % (0-4.4); Hematocrit 54.7 % (37.0-47.0); Hemoglobin 17.4 g/dL (12.0-15.0); Immature Granulocyte Absolute 0.03 K/mm3 (0.00-0.031); Immature Granulocyte Percent A 0.3 % (0-0.5); Lymphocytes Absolute Auto 2.75 K/mm3 (0.9-3.2); Lymphocytes Percent Auto 31.3 % (18.3-44.2); Mean Corpuscular HGB Conc 31.8 g/dl (32-36); Mean Corpuscular Hemoglobin 28.1 pg (26-34); Mean Corpuscular Volume 88.2 fl (80-100); Mean Platelet Volume 10.6 fl (7.4-10.4); Monocytes Absolute Auto 0.9 K/mm3 (0.1-0.6); Monocytes Percent Auto 10.1 % (2.6-8.5); Neutrophils Absolute Auto 4.9 K/mm3 (1.3-6.7); Neutrophils Percent Auto 55.7 % (45.5-73.1); Platelet Count Result 304 k/mm3 (150-375); Red Cell Distribution Width 15.8 % (11.5-14.5); White Blood Count 8.8 K/mm3 (4.5-10.0)
[2024-07-15 05:30] LABS: Alanine Aminotransferase 67 U/L (6-35); Albumin Level 3.2 g/dL (3.5-5.1); Alkaline Phosphatase 63 U/L (38-126); Anion Gap 10 mmol/L (4-12); Aspartate Amino Transferase 31 U/L (14-36); Bilirubin,Total 0.8 mg/dL (0.2-1.3); Blood Urea Nitrogen 14 mg/dL (7-17); Calcium 8.3 mg/dL (8.4-10.2); Carbon Dioxide 20 mmol/L (22-30); Chloride 103 mmol/L (98-107); Estimated CRCL calculation 67 ml/min; Estimated Glomerular Filt Rate > 60; Glucose 101 mg/dL (65-110); Potassium 4.2 mmol/L (3.4-5.0); Sodium 133 mmol/L (137-145)
[2024-07-15] MEDS: SACUBITRIL/VALSARTAN 24-26 MG TABLET 1 TAB PO (08:27)
[2024-07-15] MEDS: EMPAGLIFLOZIN 10 MG TABLET PO (08:27)
[2024-07-15] MEDS: AZITHROMYCIN 250 MG TABLET 500 MG PO (08:28)
[2024-07-15] MEDS: METOPROLOL SUCCINATE EXT REL 25 MG TABCR PO (08:28)
[2024-07-15] MEDS: SPIRONOLACTONE 12.5 MG TABLET PO (08:28)
[2024-07-15] MEDS: AMOXICILLIN/CLAVULANATE K 875-125 MG TAB 1 TABLET PO (08:28)
--- NOTE | 2024-07-15 16:34 | P.PNIM_ITS ---
Progress Note: A&P Assessment and Plan (1) Acute heart failure: Code(s): I50.9 - Heart failure, unspecified Status: Acute Assessment and Plan: * chest x-ray showed bibasilar atelectasis versus pneumonia * chest/abdomen/ pelvis CTA showed moderate right pleural effusion and small to moderate left pleural effusion, mild pulmonary edema, gallbladder wall thickening likely related to fluid overload state * proBNP 9890, troponin 0.018 * respiratory panel negative for influenza A and B, RSV, COVID * patient was given 40 mg IV push Lasix while in the ED * will obtain echocardiogram 07/13 * Echo showing severely reduced left ventricular systolic function with an estimated EF of 30-35%, severely increased left ventricular wall thickness, mild pulmonary hypertension with an estimated pulmonary arterial systolic pressure of 53mmHg, abnormal diastolic function * continue Lasix 40 mg daily * Patient started on Entresto, spironolactone, and Jardiance * Cardiology consulted * Cardiopulmonary rehab ordered. 07/14 * Cardiology recommending Life vest * Case coordination pending medicaid approval for life vest * Continue Entresto, spironolactone, Jardiance and Metoprolol 07/15 * Still awaiting insurance approval for Life vest (2) Bilateral pleural effusion: Code(s): J90 - Pleural effusion, not elsewhere classified Status: Acute Assessment and Plan: * chest/abdomen/ pelvis CTA showed moderate right pleural effusion and small to moderate left pleural effusion * 07/12/24 diagnostic and therapeutic thoracentesis obtained today and yielded 700 ml pleural fluid. (3) Pneumonia: Code(s): J18.9 - Pneumonia, unspecified organism Status: Acute Assessment and Plan: * CXR shown pneumonia * Continue Augmentin and Azithromycin * Duonebs as needed (4) HTN (hypertension): Code(s): I10 - Essential (primary) hypertension Status: Inactive Assessment and Plan: * Continue Entresto, spironolactone and Metoprolol (5) Abnormal transaminases: Code(s): R74.8 - Abnormal levels of other serum enzymes Status: Acute Assessment and Plan: * Liver enzymes trending downward * AST 38, ALT 79 * Hepatitis panel negative (6) Abnormal drug screen: Code(s): R89.2 - Abnormal level of other drugs, medicaments and biological substances in specimens from other organs, systems and tissues Status: Acute Assessment and Plan: * urine drug screen positive for amphetamines * patient denies any recreational drug history (7) Abnormal finding on urinalysis: Code(s): R82.90 - Unspecified abnormal findings in urine Status: Acute Assessment and Plan: * UA showed cloudy appearance, 1+ urine protein, positive nitrate, 3-5 urine RBC, many urine squamous * Urine culture negative * Rocephin discontinued. Time Spent With Patient Time with patient: 15 - 25 minutes Subjective Date/time seen: 07/15/24 16:34 Interval history: Interval history: This is a 33-year-old female with no significant past medical history who presented to the hospital with complaints of shortness of breath / dyspnea. patient states that she noticed swelling in her right lower extremity about 9 days ago and then started having shortness of breath about 4 days ago that progressively worsened. She denies any recent sick contacts. She denies any fever, chills, nausea, vomiting, diarrhea, abdominal pain, chest pain. Workup in the hospital included a chest x-ray which showed bibasilar atelectasis versus pneumonia. Right ankle x-ray which was negative for any acute abnormality. Chest/abdomen/ pelvis CTA showed moderate right pleural effusion is small to moderate left pleural effusion, mild pulmonary edema, gallbladder wall thickening likely related to fluid overload state. Abdomen ultrasound showed a nonspecific borderline gallbladder wall thickening but with negative Elise sign and without gallbladder dilation or cholelithiasis to suggest acute cholecystitis. Given the persistent right pleural effusion with pulmonary edema on CT is likely related to congestive heart failure. Initial labs showed a white blood cell count of 10.2, D-dimer 4.78, sodium 136, AST 61, ALT 95, proBNP 9890, troponin 0.018. UA was obtained which showed cloudy urine appearance, 1+ urine protein, positive nitrate, 3-5 urine RBC, many urine squamous epithelial cells, 4+ urine bacteria. Urine test was negative. Urine drug test was positive for amphetamine. Respiratory panel was negative for influenza A and B, RSV, COVID. EKG showed sinus tach with a rate of 113, QTC 448. Patient was given 40 mg IV push Lasix while in the ED. Subjective: Patient denies any new complaints today. Labs reviewed. Review of Systems Review of Systems: All systems reviewed & are unremarkable except as noted in HPI and below Exam Narrative: General: In no acute distress, well nourished Cardiac: Normal S1 and S2. RRR, No murmur, gallops or friction rubs, peripheral pulses intact. Respiratory: Lungs clear to auscultation, no adventitious lung sounds, currently on room air Gastrointestinal: soft, non-distended, non-tender, normoactive bowel sounds. : voiding without difficulty. Extremities: moves all extremities well Neuro: Alert and oriented x4 Objective Data Vital Signs Vital Signs: Vital Signs - 24 hr 07/14/24 20:00 07/14/24 20:00 07/14/24 21:21 Temperature 98.1 F Pulse Rate 78 88 Respiratory Rate 18 Blood Pressure 107/70 Pulse Oximetry 98 Oxygen Delivery Room Air 07/15/24 00:00 07/15/24 04:00 07/15/24 04:12 Temperature 98.4 F Pulse Rate 72 80 85 Respiratory Rate 16 Blood Pressure 123/87 Pulse Oximetry 98 Oxygen Delivery 07/15/24 08:00 07/15/24 08:28 07/15/24 12:00 Temperature Pulse Rate 75 101 H 85 Respiratory Rate Blood Pressure Pulse Oximetry Oxygen Delivery 07/15/24 13:21 Temperature 97.6 F Pulse Rate 72 Respiratory Rate 18 Blood Pressure 108/76 Pulse Oximetry 100 Oxygen Delivery Intake/Output Intake/Output: Intake & Output 07/12/24 07/13/24 07/14/24 07/15/24 23:59 23:59 23:59 23:59 Intake Total 290 1132 802 610 Output Total 700 Balance -410 1132 802 610 Meds/Results Medications: Active Medications Generic Name Dose Route Start Last Admin Trade Name Familiaq PRN Reason Stop Dose Admin Acetaminophen 650 mg 07/12/24 13:06 07/13/24 08:30 Acetaminophen 325 Mg Tablet PO 650 mg Q4H PRN Administration Mild Pain (1-3) or Fever Albuterol/Ipratropium 3 ml 07/12/24 13:32 Ipratropium 0.5 Mg/Albuterol Sulfate 2.5 Mg Ampul.Neb 3 Ml INHALATION Q6HRT PRN Shortness of breath/dyspnea Amoxicillin/Clavulanate Potassium 1 tablet 07/13/24 21:00 07/15/24 08:28 Amoxicillin/Clavulanate K 875-125 Mg Tab PO 1 tablet Q12HR JEAN Administration Azithromycin 500 mg 07/13/24 09:00 07/15/24 08:28 Azithromycin 250 Mg Tablet PO 07/16/24 09:01 500 mg DAILY JEAN Administration Empagliflozin 10 mg 07/14/24 09:00 07/15/24 08:27 Empagliflozin 10 Mg Tablet PO 10 mg DAILY JEAN Administration Hydralazine HCl 10 mg 07/12/24 13:20 07/12/24 15:02 Hydralazine Hcl 20 Mg/Ml Vial IV PUSH 10 mg Q8H PRN Administration Blood Pressure - High Metoprolol Succinate 25 mg 07/14/24 09:00 07/15/24 08:28 Metoprolol Succinate Ext Rel 25 Mg Tabcr PO 25 mg QAM JEAN Administration Ondansetron HCl 4 mg 07/12/24 13:06 Ondansetron Inj 4 Mg/2 Ml Vial IV PUSH Q4H PRN Nausea Sacubitril/Valsartan 1 tab 07/13/24 21:00 07/15/24 08:27 Sacubitril/Valsartan 24-26 Mg Tablet PO 1 tab Q12HR JEAN Administration Spironolactone 12.5 mg 07/13/24 15:30 07/15/24 08:28 Spironolactone 12.5 Mg Tablet PO 12.5 mg QAM JEAN Administration Radiology Results: ITS Impressions Ankle X-Ray 07/12/24 08:40 Impression: 1: No acute bone or joint abnormality. Chest/Abdomen/Pelvis CTA 07/12/24 11:40 Impression: Moderate right pleural effusion and small to moderate left pleural effusion. Mild pulmonary edema, predominantly interstitial edema. Minimal heterogeneity of liver. Correlate for congestive hepatopathy. Gallbladder wall thickening likely related to fluid overload state. Abdomen Ultrasound 07/12/24 12:39 IMPRESSION: 1. Nonspecific borderline gallbladder wall thickening but with negative sonographic Elise's on and without gallbladder dilation or cholelithiasis to suggest acute cholecystitis. Given the persistent right pleural effusion as well as the Cardia megaly with pulmonary edema seen on prior CT the prior more prominent wall thickening is likely related to congestive heart failure. If there is continued high clinical concern for acute cholecystitis could consider HIDA scan for further evaluation. Chest X-Ray 07/12/24 15:53 IMPRESSION: No pneumothorax following right-sided thoracentesis with resolution of the right-sided pleural effusion, as detailed above. Thoracentesis Ultrasound 07/12/24 16:03 IMPRESSION: 1. Successful ultrasound-guided thoracentesis yielding 700 mL of clear yellow fluid. Labs Labs: Laboratory Results - last 24 hr 07/15/24 04:12 WBC 8.8 RBC 6.20 H Hgb 17.4 H Hct 54.7 H MCV 88.2 MCH 28.1 MCHC 31.8 L RDW 15.8 H Plt Count 304 MPV 10.6 H Immature Gran % (Auto) 0.3 Neut % (Auto) 55.7 Lymph % (Auto) 31.3 [place] % (Auto) 10.1 H Eos % (Auto) 1.6 Baso % (Auto) 1.0 Lymph # (Auto) 2.75 [place] # (Auto) 0.9 H Eos # (Auto) 0.1 Baso # (Auto) 0.1 Abs Immat Gran (auto) 0.03 Absolute Neuts (auto) 4.9 Absolute Nucleated RBC 0.000 Nucleated RBC % 0.0 Sodium 133 L Potassium 4.2 Chloride 103 Carbon Dioxide 20 L Anion Gap 10 BUN 14 D Creatinine 0.88 Estim Creat Clear Calc 67 Estimated GFR > 60 Glucose 101 Calcium 8.3 L Total Bilirubin 0.8 AST 31 ALT 67 H Alkaline Phosphatase 63 Total Protein 6.0 L Albumin 3.2 L Quality VTE Prophylaxis VTE prophylaxis: mechanical ordered
--- NOTE | 2024-07-15 18:48 | P.DS_ITS ---
DS: Admitting Diagnosis Discharge Date 07/15/24 Admitting Diagnosis Acute heart failure bilateral pleural effusions pneumonia hypertension abnormal transaminitis abnormal drug screen abnormal findings on a urinalysis DS: Discharge Diagnosis Discharge Diagnosis (1) Acute heart failure: Code(s): I50.9 - Heart failure, unspecified Status: Acute (2) Bilateral pleural effusion: Code(s): J90 - Pleural effusion, not elsewhere classified Status: Acute (3) Pneumonia: Code(s): J18.9 - Pneumonia, unspecified organism Status: Acute (4) HTN (hypertension): Code(s): I10 - Essential (primary) hypertension Status: Inactive (5) Abnormal transaminases: Code(s): R74.8 - Abnormal levels of other serum enzymes Status: Acute (6) Abnormal drug screen: Code(s): R89.2 - Abnormal level of other drugs, medicaments and biological substances in specimens from other organs, systems and tissues Status: Acute (7) Abnormal finding on urinalysis: Code(s): R82.90 - Unspecified abnormal findings in urine Status: Acute DS: Summary Hospital Course Reason for hospitalization: Acute heart failure bilateral pleural effusions pneumonia hypertension abnormal transaminitis abnormal drug screen abnormal findings on a urinalysis Hospital Course: This is a 33-year-old female with no significant past medical history who presented to the hospital with complaints of shortness of breath / dyspnea. patient states that she noticed swelling in her right lower extremity about 9 days ago and then started having shortness of breath about 4 days ago that progressively worsened. She denies any recent sick contacts. She denies any fever, chills, nausea, vomiting, diarrhea, abdominal pain, chest pain. Workup in the hospital included a chest x-ray which showed bibasilar atelectasis versus pneumonia. Right ankle x-ray which was negative for any acute abnormality. Chest/abdomen/ pelvis CTA showed moderate right pleural effusion is small to moderate left pleural effusion, mild pulmonary edema, gallbladder wall thickening likely related to fluid overload state. Abdomen ultrasound showed a nonspecific borderline gallbladder wall thickening but with negative Elise sign and without gallbladder dilation or cholelithiasis to suggest acute cholecystitis. Given the persistent right pleural effusion with pulmonary edema on CT is likely related to congestive heart failure. Initial labs showed a white blood cell count of 10.2, D-dimer 4.78, sodium 136, AST 61, ALT 95, proBNP 9890, troponin 0.018. UA was obtained which showed cloudy urine appearance, 1+ urine protein, positive nitrate, 3-5 urine RBC, many urine squamous epithelial cells, 4+ urine bacteria. Urine test was negative. Urine drug test was positive for amphetamine. Respiratory panel was negative for influenza A and B, RSV, COVID. EKG showed sinus tach with a rate of 113, QTC 448. Patient was given 40 mg IV push Lasix while in the ED. heart failure with reduced ejection fraction: echocardiogram showed LV systolic function severely reduced with an estimated EF of 30-35%, LV diastolic function was abnormal, mild pulmonary hypertension with an estimated pulmonary arterial systolic pressure of 43 mmHg left atrium moderately enlarged. Patient was given a LifeVest, placed on Entresto, Jardiance, spironolactone, metoprolol by Cardiology. She will need to follow up with Cardiology in a couple of weeks. She was instructed to abstain from illicit drug use As this is the likely cause of her new onset heart failure. community-acquired pneumonia: patient was transition to Augmentin and azithromycin. She will need to follow up with her primary care doctor in 1 week. Transaminitis: her initial AST was 61, ALT 95. She is now trending down to baseline with an AST of 31, ALT of 67-- resolving abnormal findings on urinalysis: UA showed cloudy urine appearance, 1+ urine protein, positive nitrate, 3-5 urine RBC, many urine squamous epithelial cells, 4+ urine bacteria. Urine culture was negative for bacteria. She is asymptomatic. Abnormal drug screen: patient was positive for amphetamines. She was instructed to abstain from illicit drug use as this is likely the cause of her new onset heart failure. uncontrolled hypertension: her blood pressures were ranging 148/94 to 178/131. She was started on Entresto, Jardiance, spironolactone, metoprolol by Cardiology with improvement in her blood pressure readings. She is now ranging 108/76 to 140/78 Final diagnosis: heart failure with reduced ejection fraction, substance abuse, community-acquired pneumonia, transaminitis, uncontrolled hypertension Status at Discharge Cognitive/behavioral status at discharge: Alert and oriented x3 Functional status at discharge: independent ambulation Overall status at discharge: patient is progressing back to baseline Time Spent with Patient Time attestation: Total time spent providing and/or coordinating discharge services: Exam Narrative: General: In no acute distress, well nourished Cardiac: Normal S1 and S2. RRR, No murmur, gallops or friction rubs, peripheral pulses intact. Respiratory: Lungs clear to auscultation, no adventitious lung sounds, currently on room air Gastrointestinal: soft, non-distended, non-tender, normoactive bowel sounds. : voiding without difficulty. Extremities: moves all extremities well Neuro: Alert and oriented x4 DS: Data Data Completed and Pending Completed studies during hospitalization: Pending at discharge 07/12/24 13:02 Cytology [PTH] Routine Labs on day of discharge: Labs from last 24 hours 07/15/24 04:12 WBC 8.8 RBC 6.20 H Hgb 17.4 H Hct 54.7 H MCV 88.2 MCH 28.1 MCHC 31.8 L RDW 15.8 H Plt Count 304 MPV 10.6 H Immature Gran % (Auto) 0.3 Neut % (Auto) 55.7 Lymph % (Auto) 31.3 [place] % (Auto) 10.1 H Eos % (Auto) 1.6 Baso % (Auto) 1.0 Lymph # (Auto) 2.75 [place] # (Auto) 0.9 H Eos # (Auto) 0.1 Baso # (Auto) 0.1 Abs Immat Gran (auto) 0.03 Absolute Neuts (auto) 4.9 Absolute Nucleated RBC 0.000 Nucleated RBC % 0.0 Sodium 133 L Potassium 4.2 Chloride 103 Carbon Dioxide 20 L Anion Gap 10 BUN 14 D Creatinine 0.88 Estim Creat Clear Calc 67 Estimated GFR > 60 Glucose 101 Calcium 8.3 L Total Bilirubin 0.8 AST 31 ALT 67 H Alkaline Phosphatase 63 Total Protein 6.0 L Albumin 3.2 L Preliminary micro results at discharge 07/12/24 15:13 Anaerobic Culture - Preliminary Other Aerobic Culture - Preliminary Procedures/Treatments: None Discharge Plan Discharge Attending physician on discharge: Artur Beal Consulting providers: Yanet Shaffer; Óscar Lucero; Gold Potts; Mejia Morales; Josh Champagne; Glenda Spears; Nilay Seals; Dayday Lindsey; Troy Ivory Discharging Clinician: Yaent Shaffer Anticipated Discharge Date/Time: 07/15/24 17:03 Patient Disposition: Home, Self-Care Activity: as tolerated Diet: as tolerated and heart healthy Discharge Instructions: * Take all of your medication as prescribed * Follow up with Cardiology within 2 weeks * You are being discharged with a Life vest in place. Make sure you are wearing this at all times except while showering/bathing. Always take shower when someone else is present with you. Do not submerge device in water. Follow all instructions given to you by the [facility] Life Vest team. * Finish your antibiotics as prescribed as you were started on this for a potential underlying pneumonia. * Abstain from elicit drug use and amphetamine based medications Patient Instructions: Antibiotic Form, Amoxicillin/Clavulanate Potassium (By mouth), Azithromycin (By mouth), Dilated Cardiomyopathy (DC), Polysubstance Use Disorder (DC), Pneumonia (DC) Patient Language: Bulgarian Stand Alone Forms: General Discharge Information Follow-up/Referrals: Óscar Lucero MD [Physician] - 2 Weeks Discharge Medications: New azithromycin [Zithromax] 250 mg Tablet 500 mg PO DAILY Qty: 2 0RF metoprolol succinate [Toprol XL] 25 mg Tablet Extended Release 24 Hr 25 mg PO QAM Qty: 30 0RF Jardiance 10 mg Tablet 10 mg PO DAILY Qty: 30 0RF Entresto 24-26 mg Tablet 1 tab PO Q12HR Qty: 30 0RF spironolactone 25 mg tablet 12.5 mg PO DAILY Qty: 15 0RF amoxicillin-pot clavulanate 875-125 mg tablet 1 tablet PO Q12H Qty: 6 0RF Date of admission: 07/12/24 13:06 Primary Care Provider: UNKNOWN,DOCTOR Admitting Provider: Artur Beal Attending physician on admission: Atrur Beal Condition: Improved Quality VTE Prophylaxis VTE prophylaxis: mechanical ordered Hospitalist MIPS Heart Failure (Exclusion) Patient has history of Heart Transplant or Left Ventricular Assistive Device?: No IF YES, STOP HERE Heart Failure (Qualifier) Patient has current or prior documentation of LVEF less than or equal to 40%, or mod/servere depressed LVSF?: Yes IF NO, STOP HERE If Yes, Heart Failure (Qualifier) Patient was prescribed or already taking an Angiotensin-Converting Enzyme (PAOLA) Inhibitor, or Antiotensin Receptor Veronique (ARB): Yes Patient was prescribed or already taking bisoprolol, carvedilol, or sustained release metoprolol succinate: Yes
[2024-07-15 19:59] LABS: Glucose Pleural Fluid 108 mg/dL; LDH Pleural Fluid 35 U/L
[2024-07-16 14:52] LABS: Adenosine Deaminase Pleural Fl 1.4 U/L (<9.2)
[2024-07-16 14:52] LABS: Amylase, Pleural Fluid <10 U/L
[2024-07-18 20:09] LABS: Total Protein Pleural Fluid <3.0 g/dL
== END 2024-07-15 21:27 | disposition home or self-care (01) ==
LOC: ANHED 07:44 → ANH3MEDSUR 14:07 → ANH2MED 15:36
PROVIDERS: Nurse Practitioner Acute Care; Admitting Provider Internal Medicine; Emergency Provider Student in an Organized Health Care Education/Training Program; Visit Provider Internal Medicine
DX: I11.0 Hypertensive heart disease with heart failure (principal); I50.21 Acute systolic (congestive) heart failure; J91.8 Pleural effusion in other conditions classified elsewhere; I42.0 Dilated cardiomyopathy; J18.9 Pneumonia, unspecified organism; R74.01 Elevation of levels of liver transaminase levels; F19.10 Other psychoactive substance abuse, uncomplicated; R82.90 Unspecified abnormal findings in urine; R89.2 Abnormal level of other drugs, medicaments and biological substances in specimens from other organs, systems and tissues; Z20.822 Contact with and (suspected) exposure to COVID-19
CPT/HCPCS: 32555; 36415; 71046; 71275; 73600; 74177; 76705; 80053; 80061; 80074; 80307; 81001; 81025; 82150; 82550; 82945; 83615; 83735; 83880; 84157; 84311; 84443; 84484; 85025; 85380; 85610; 85730; 87070; 87075; 87086; 87205; 87637; 88108; 88305; 89051; 93005; 93306; 96365; 96374; 96375; 99285; A9270; G0378; J0360; J0696; J1940; Q9967